=== PATIENT | female | born 1995 | race Caucasian/White ===

== ENCOUNTER 2016-07-31 09:25 | Inpatient (IN) | payer MEDICAID ==
[2016-07-31] MEDS ORDERED: Sodium Chloride 0.9% 10 ML Syringe FLUSH PRN (09:51)
[2016-07-31] MEDS ORDERED: ceFAZolin 1 GM in Premix Bag 1 BAG IV ONE (10:20)
--- NOTE | 2016-07-31 10:35 | EDM.PDOC ---
ED HPI Trauma - General Chief Complaint: Upper Extremity Injury/Pain Stated Complaint: POSS INFECTION L ARM Time Seen by Provider: 07/31/16 09:40 Source: Reports: Patient, RN notes reviewed - History of Present Illness INITIAL COMMENTS - FREE TEXT/NARRATIVE: 20-year-old female comes in with cellulitis left arm. Started about 4 or 5 days ago. States that it's a friend attempted to start an IV 4 5 days ago to "inject meth". She states she "normally does not use or inject drugs" blood looks like there is history of drug abuse in the past. she is not diabetic. This started getting red and inflamed left antecubital area within a day and has been spreading in size daily. She states the area of erythema and swelling of her left forearm and arm now is much more than yesterday. She's had no fever or chills. No chest pain or difficulty breathing. She denies cough sore throat or other unusual symptoms. She does have localized discomfort and pain with extension of the left arm. she was seen at one of the clinics yesterday, prescribed Bactrim, has taken a total of 3 doses but despite that the area of swelling and infection has been spreading. Allergies/ADRs: Allergies No Known Allergies Allergy (Verified 11/03/15 18:56) Home Medications: Ambulatory Orders Albuterol [Proventil HFA] 2 puff INH ASDIRECTED 11/03/15 [Confirmed 07/31/16] DULoxetine [Cymbalta] 60 mg PO DAILY 07/31/16 [Confirmed 07/31/16] Sulfamethoxazole/Trimethoprim [Septra DS] 1 tab PO BID 07/31/16 [Confirmed 07/31] traZODone 50 mg PO DAILY 07/31/16 [Confirmed 07/31/16] Past Medical History HEENT History: Reports: Impaired vision Other HEENT History: Wears glasses Respiratory History: Reports: Asthma Genitourinary History: Reports: Renal calculus, STD [employer] History: Reports: Musculoskeletal History: Reports: Fibromyalgia Psychiatric History: Reports: Addiction, Anxiety - Infectious Disease History Infectious Disease History: Reports: Hepatitis C Social & Family History - Family History Family Medical History: Noncontributory - Tobacco Use Smoking Status *Q: Current Every Day Smoker Years of Tobacco use: 2 Packs/Tins Daily: 0.5 - Caffeine Use Caffeine Use: Reports: None - Recreational Drug Use Recreational Drug Use: No Drug Use in Last 12 Months: No Recreational Drug Type: Reports: Heroin, Methamphetamine Recreational Drug Use Frequency: Daily Review of Systems - Review of Systems Review Of Systems: See Below Constitutional: Denies: chills, fever Eyes: Reports: no symptoms Ears: Reports: no symptoms Nose: Reports: no symptoms Mouth/Throat: Denies: pain, difficulty swallowing, painful swallowing Respiratory: Denies: shortness of breath Cardiovascular: Denies: chest pain GI/Abdominal: Denies: Abdominal pain, Nausea, Vomiting Genitourinary: Reports: no symptoms Musculoskeletal: Reports: other (pain and swelling erythema left anterior arm and forearm with extension of erythema and swelling to include proximal one third of her forearm and walk small and medial arm, no drainage). Denies: neck pain, back pain (no neck pain no neck pain) Skin: Reports: erythema (large area of erythema left anterior and medial forearm and anterior, medial and posterior warm) Neurological: Denies: headache, numbness, tingling Trauma Exam - Physical Exam Exam: See Below General Appearance: Reports: alert, no apparent distress Head: Reports: atraumatic. Denies: facial swelling Eyes: bilateral eye: EOMI, normal inspection, PERRL Ears: Reports: normal external exam Nose: Reports: normal inspection Throat/Mouth: Reports: Normal inspection, Normal oropharynx Neck: Reports: non-tender, full range of motion Respiratory Exam: Reports: no respiratory distress, lungs clear, normal breath sounds Cardiovascular: Reports: tachycardia GI/Abdominal: Reports: soft, non tender Back: Denies: CVA tenderness (R), CVA tenderness (L) Extremities: Reports: other (swelling and erythema in the cubital area of left upper extremity, this extends about one third of the distance of her forearm medially and anteriorly and extends about senior living to the axilla medially and posteriorly, there is localized tenderness of the antecubital area especially, no definite mass palpable at this time. No evidence of drainage.) Neurologic: Reports: no motor/sensory deficits, oriented x 3 Skin: Reports: Normal color, Warm/dry, Other (skin is otherwise clear) Course - Vital Signs Last Recorded V/S: Last Vital Signs Temp 99.3 F 07/31/16 09:31 Pulse 132 H 07/31/16 09:31 Resp 20 07/31/16 09:31 BP 113/80 07/31/16 09:31 Pulse Ox 99 07/31/16 09:31 - Orders/Labs/Meds Orders: Active Orders 24 hr Category Date Time Status Peripheral IV Care [RC] . DIRECTED Care 07/31/16 09:52 Active CULTURE BLOOD [BC] Stat Lab 07/31/16 10:00 Received CULTURE BLOOD [BC] Stat Lab 07/31/16 10:37 Received DRUG SCREEN, URINE [URCHEM] Stat Lab 07/31/16 11:22 Uncollected UA W/O MICROSCOPIC [URIN] Stat Lab 07/31/16 11:22 Uncollected Sodium Chloride 0.9% [Saline Flush] Med 07/31/16 09:51 Active 10 ml FLUSH ASDIRECTED PRN Peripheral IV Insertion Adult [OM.PC] Stat Oth 07/31/16 09:51 Ordered Medication Orders Sodium Chloride (Saline Flush) 10 ml FLUSH ASDIRECTED PRN PRN Reason: Keep Vein Open Last Admin: 07/31/16 10:04 Dose: 10 ml Labs: Laboratory Tests 07/31/16 07/31/16 07/31/16 Range/Units 09:55 09:55 09:55 WBC 25.93 H (3.98-10.04) K/mm3 RBC 4.18 (3.98-5.22) M/mm3 Hgb 14.0 (11.2-15.7) gm/L Hct 39.5 (34.1-44.9) % MCV 94.5 (79.4-94.8) fl MCH 33.5 H (25.6-32.2) pg MCHC 35.4 (32.2-35.5) g/dl RDW Std Deviation 40.4 (36.4-46.3) fL Plt Count 243 (182-369) K/mm3 MPV 9.6 (9.4-12.3) fl Neut % (Auto) 89.9 H (34.0-71.1) % Lymph % (Auto) 4.3 L (19.3-51.7) % [place] % (Auto) 5.2 (4.7-12.5) % Eos % (Auto) 0.3 L (0.7-5.8) Baso % (Auto) 0.1 (0.1-1.2) % Neut # 23.32 H (1.56-6.13) K/mm3 Lymph # 1.11 L (1.18-3.74) K/mm3 [place] # 1.35 H (0.24-0.36) K/mm3 Eos # 0.07 (0.04-0.36) K/mm3 Baso # 0.02 (0.01-0.08) K/mm3 Manual Slide Review Abnormal smear Sodium 136 (136-145) mEq/L Potassium 3.0 L (3.5-5.1) mEq/L Chloride 99 (98-107) mEq/L Carbon Dioxide 25 (21-32) mEq/L Anion Gap 15.0 (5-15) BUN 14 (7-18) mg/dL Creatinine 0.8 (0.55-1.02) mg/dL Est Cr Clr Drug Dosing 87.98 mL/min Estimated GFR (MDRD) > 60 (>60) mL/min BUN/Creatinine Ratio 17.5 (14-18) Glucose 110 H (74-106) mg/dL Calcium 9.0 (8.5-10.1) mg/dL Total Bilirubin 0.4 (0.2-1.0) mg/dL AST 52 H (15-37) U/L ALT 148 H (14-59) U/L Alkaline Phosphatase 108 (46-116) U/L C-Reactive Protein 20.8 H* (<1.0) mg/dL Total Protein 7.4 (6.4-8.2) g/dl Albumin 3.3 L (3.4-5.0) g/dl Globulin 4.1 gm/dL Albumin/Globulin Ratio 0.8 L (1-2) Meds: Medications Generic Name Dose Route Start Last Admin Trade Name Freq PRN Reason Stop Dose Admin Sodium Chloride 10 ml 07/31/16 09:51 07/31/16 10:04 Saline Flush FLUSH 10 ml ASDIRECTED PRN Administration Keep Vein Open Discontinued Medications Generic Name Dose Route Start Last Admin Trade Name Freq PRN Reason Stop Dose Admin Cefazolin Sodium/Dextrose 1 gm 50 mls @ 100 mls/hr 07/31/16 10:20 07/31/16 10 :43 / Premix IV 07/31/16 10:49 100 mls/hr ONETIME ONE Administration Vancomycin HCl 1 gm/ Sodium 250 mls @ 250 mls/hr 07/31/16 10:20 07/31/16 11: 31 Chloride IV 07/31/16 11:19 250 mls/hr ONETIME ONE Administration - Re-Assessments/Exams Free Text/Narrative Re-Assessment/Exam: 07/31/16 11:27 white blood count has come back elevated at almost 26,000, C- reactive protein 20. She is significant cellulitis of her left forearm and warm IV drug use associated. Also her potassium has come back low at 3.0. For all of those reasons she will need to be admitted for IV antibiotics, potassium supplementation. With a history of IV drug she is not a good candidate to try do this outpatient. . 07/31/16 12:00 Within CG screening she does qualify for inpatient as she should. With the hypokalemia I am going to admit her inpatient telemetry. Departure - Departure Time of Disposition: 11:29 Disposition: Home, Self-Care 01 Condition: serious Clinical Impression: Hypokalemia Cellulitis Qualifiers: Site of cellulitis: extremity Site of cellulitis of extremity: upper extremity Laterality: left Qualified Code(s): L03.114 - Cellulitis of left upper limb Referrals: Luisa Sanford, SALES CLERK [employer] [Primary Care Provider] - Forms: ED Department Discharge ED Communication - Discussed Case With (1) Discussed Case With (1): Admitting Provider (Dr Elliott, decision to admit an 11: 55) - My Orders Last 24 Hours: My Active Orders 07/31/16 09:51 Sodium Chloride 0.9% [Saline Flush] 10 ml FLUSH ASDIRECTED PRN Peripheral IV Insertion Adult [OM.PC] Stat 07/31/16 09:52 Peripheral IV Care [RC] . DIRECTED 07/31/16 10:00 CULTURE BLOOD [BC] Stat 07/31/16 10:37 CULTURE BLOOD [BC] Stat 07/31/16 11:22 DRUG SCREEN, URINE [URCHEM] Stat UA W/O MICROSCOPIC [URIN] Stat - Assessment/Plan Last 24 Hours: My Active Orders 07/31/16 09:51 Sodium Chloride 0.9% [Saline Flush] 10 ml FLUSH ASDIRECTED PRN Peripheral IV Insertion Adult [OM.PC] Stat 07/31/16 09:52 Peripheral IV Care [RC] . DIRECTED 07/31/16 10:00 CULTURE BLOOD [BC] Stat 07/31/16 10:37 CULTURE BLOOD [BC] Stat 07/31/16 11:22 DRUG SCREEN, URINE [URCHEM] Stat UA W/O MICROSCOPIC [URIN] Stat
--- NOTE | 2016-07-31 12:00 | PCM.HP ---
H&P History of Present Illness - General Date of Service: 07/31/16 Admit Problem/Dx: Admission Diagnosis/Problem Admission Diagnosis/Problem Cellulitis Source of Information: Patient, Old records, Provider, RN notes reviewed History Limitations: Reports: Physical impairment - History of Present Illness Initial Comments - Free Text/Narative: This is a 20 yo white female with past medical hx/o Asthma, Hx/o STD, Renal Stone, Fibromyalgia, Anxiety, Hep Infection and Tobacco Abuse who comes in with worsening left arm cellulitis. Patient was initially seen the clinic and she was given Bactrim fro antibiotic treatment. Unfortunately her arm got more swollen and painful so she presented to ED for further eval Patient carries a hx/o IVDU with Meth and Heroin. She admits to having Meth IVDU in the past 4-5days with the help of a friend. Her initial ED work up shows a CBC remarkable for WBC 25.93 with Neutrophils of 89.9%. Her chemistry is significant for K 3.0, BS 110, ASt 51, ALT 148, CRP 20.8 and Albumin 3.3. Patient was referred to me for medical treatment of her SSTI/Cellulitis. Left Arm Pain Score (Numeric/FACES): 5 - Related Data Allergies/Adverse Reactions: Allergies Allergy/AdvReac Type Severity Reaction Status Date / Time No Known Allergies Allergy Verified 11/03/15 18:56 Home Medications: Home Meds Albuterol [Proventil HFA] 2 puff INH ASDIRECTED 11/03/15 [History] DULoxetine [Cymbalta] 60 mg PO DAILY 07/31/16 [History] Sulfamethoxazole/Trimethoprim [Septra DS] 1 tab PO BID 07/31/16 [History] traZODone 50 mg PO DAILY 07/31/16 [History] Past Medical History HEENT History: Reports: Impaired vision Other HEENT History: Wears glasses Respiratory History: Reports: Asthma Genitourinary History: Reports: Renal calculus, 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: Musculoskeletal History: Reports: Fibromyalgia Psychiatric History: Reports: Addiction, Anxiety - Infectious Disease History Infectious Disease History: Reports: Hepatitis C Social & Family History - Family History Family Medical History: Noncontributory - Tobacco Use Smoking Status *Q: Current Every Day Smoker Years of Tobacco use: 2 Packs/Tins Daily: 0.5 - Caffeine Use Caffeine Use: Reports: None - Recreational Drug Use Recreational Drug Use: No Drug Use in Last 12 Months: No Recreational Drug Type: Reports: Heroin, Methamphetamine Recreational Drug Use Frequency: Daily H&P Review of Systems - Review of Systems: Review Of Systems: See Below General: Denies: fever, chills, malaise, weakness HEENT: Reports: no symptoms, sore throat. Denies: dysphasia, ear pain, eye pain , headaches, hearing changes, rhinitis, post nasal drip, sinus congestion, visual changes Pulmonary: Denies: shortness of breath Cardiovascular: Reports: no symptoms Gastrointestinal: Denies: Abdominal pain, Nausea, Vomiting Genitourinary: Reports: no symptoms Musculoskeletal: Reports: arm pain Skin: Reports: erythema, wound, change in color, lesions. Denies: cyanosis, bruising, pruritis, rash Psychiatric: Denies: depression, anxiety, hallucinations Neurological: Denies: confusion, difficulty walking, weakness, gait disturbance Hematologic/Lymphatic: Reports: no symptoms Immunologic: Reports: no symptoms Exam - Exam Exam: See Below - Vital Signs Vital Signs: Last Vital Signs Temp 37.4 C 07/31/16 09:31 Pulse 132 H 07/31/16 09:31 Resp 20 07/31/16 09:31 BP 113/80 07/31/16 09:31 Pulse Ox 99 07/31/16 09:31 Weight: 54.431 kg - Exam General: alert, oriented, cooperative. No: mild distress HEENT: Conjunctiva clear, EACs clear, EOMI, Hearing intact, Mucosa moist & pink , Nares patent, Normal nasal septum, Posterior pharynx clear, Other, PERRLA Neck: supple, trachea midline, 2+ carotid pulse wo bruit, full range of motion Lungs: Clear to auscultation, Normal respiratory effort Cardiovascular: regular rate, regular rhythm Abdomen: normal bowel sounds, soft. No: organomegaly (Female) Exam: Deferred Rectal (Female) Exam: Deferred Back Exam: normal inspection, full range of motion Extremities: normal inspection, normal pulses. No: clubbing, cyanosis, calf tenderness, edema Peripheral Pulses: 3+: posterior tibial (L), posterior tibial (R), dorsalis pedis (L), dorsalis pedis (R) Skin: warm, dry, intact Skin Alteration Location (drawings not to scale): 1 - edema and erythema. limited passie and active ROM 2 - edema and erythema. limited passie and active ROM Neuro Extensive - Mental Status: oriented x3, normal cognition, memory intact Neuro Extensive - Motor, Sensory, Reflexes: CN II-XII intact, normal gait Psychiatric: alert, normal affect, normal mood - Patient Data Lab Results last 24 hrs: Laboratory Results - last 24 hr 07/31/16 07/31/16 07/31/16 Range/Units 09:55 09:55 09:55 WBC 25.93 H (3.98-10.04) K/mm3 RBC 4.18 (3.98-5.22) M/mm3 Hgb 14.0 (11.2-15.7) gm/L Hct 39.5 (34.1-44.9) % MCV 94.5 (79.4-94.8) fl MCH 33.5 H (25.6-32.2) pg MCHC 35.4 (32.2-35.5) g/dl RDW Std Deviation 40.4 (36.4-46.3) fL Plt Count 243 (182-369) K/mm3 MPV 9.6 (9.4-12.3) fl Neut % (Auto) 89.9 H (34.0-71.1) % Lymph % (Auto) 4.3 L (19.3-51.7) % [place] % (Auto) 5.2 (4.7-12.5) % Eos % (Auto) 0.3 L (0.7-5.8) Baso % (Auto) 0.1 (0.1-1.2) % Neut # 23.32 H (1.56-6.13) K/mm3 Lymph # 1.11 L (1.18-3.74) K/mm3 [place] # 1.35 H (0.24-0.36) K/mm3 Eos # 0.07 (0.04-0.36) K/mm3 Baso # 0.02 (0.01-0.08) K/mm3 Manual Slide Review Abnormal smear Sodium 136 (136-145) mEq/L Potassium 3.0 L (3.5-5.1) mEq/L Chloride 99 (98-107) mEq/L Carbon Dioxide 25 (21-32) mEq/L Anion Gap 15.0 (5-15) BUN 14 (7-18) mg/dL Creatinine 0.8 (0.55-1.02) mg/dL Est Cr Clr Drug Dosing 87.98 mL/min Estimated GFR (MDRD) > 60 (>60) mL/min BUN/Creatinine Ratio 17.5 (14-18) Glucose 110 H (74-106) mg/dL Calcium 9.0 (8.5-10.1) mg/dL Total Bilirubin 0.4 (0.2-1.0) mg/dL AST 52 H (15-37) U/L ALT 148 H (14-59) U/L Alkaline Phosphatase 108 (46-116) U/L C-Reactive Protein 20.8 H* (<1.0) mg/dL Total Protein 7.4 (6.4-8.2) g/dl Albumin 3.3 L (3.4-5.0) g/dl Globulin 4.1 gm/dL Albumin/Globulin Ratio 0.8 L (1-2) Result Diagrams: 07/31/16 09:55 07/31/16 09:55 *Q Meaningful Use (ADM) - VTE *Q VTE Criteria *Q: - Stroke *Q Stroke Criteria *Q: - AMI *Q AMI Criteria *Q: Problem List Initiated/Reviewed/Updated: Yes Orders Last 24hrs: Active Orders 24 hr Category Date Time Status Admission Status [Patient Status] [ADT] Routine ADT 07/31/16 11:58 Active Peripheral IV Care [RC] . DIRECTED Care 07/31/16 09:52 Active CULTURE BLOOD [BC] Stat Lab 07/31/16 10:00 Received CULTURE BLOOD [BC] Stat Lab 07/31/16 10:37 Received DRUG SCREEN, URINE [URCHEM] Stat Lab 07/31/16 11:22 Uncollected UA W/O MICROSCOPIC [URIN] Stat Lab 07/31/16 11:22 Uncollected Sodium Chloride 0.9% [Saline Flush] Med 07/31/16 09:51 Active 10 ml FLUSH ASDIRECTED PRN Peripheral IV Insertion Adult [OM.PC] Stat Oth 07/31/16 09:51 Ordered Medication Orders Sodium Chloride (Saline Flush) 10 ml FLUSH ASDIRECTED PRN PRN Reason: Keep Vein Open Last Admin: 07/31/16 10:04 Dose: 10 ml Assessment/Plan Comment:: Assessment/Plan: Acute: Left Arm Cellulitis - Risk Factors: Meth and Heroin IVDU (Never snort or ingest) - IVDU Injection site - Injected arm with Meth 4-5 days ago with a friend's help - Infected arm marked with a marker - Currently on IV Vancomycin and Cefazolin, will start Rocephin 2 gram IV in am - Supportive Care, Anti-inflammatory agent, Pain Medications and Cold Compress Acute Pharyngitis - Pharynx: mildly red and edematous, no exudate noted - Rapid strep screening with culture - Cepacol lozenges 1 tab po Q4 PRN for sore throat - Anti-inflammatory Agent Leukocytosis - WBC is 25K; CRP 20.8 - 2/2 Above - Treat underlying cause Hypokalemia - 2/2 Inadequate intake - Pharmacy to replete and monitor Acute on Chronic IVDU - Carries hx/o Meth and Heroin Use - SA consult Nicotine Dependence - 1/2 ppd - Nicotine Patch daily Test Negative Chronic: Asthma/RAD Hx/o Renal Stones Hx/o STD Fibromyalgia Hep C infection w/o Treatment Anxiety Hx/o Drug Addiction Plan: Admit to Med-Surg Routine AM Labs Resume Home Will ask if she wants to be screen for HIV SA consult SW/CM for d/c planning Additional orders as above
[2016-07-31] MEDS ORDERED: Acetaminophen 325 MG Tab PO PRN (12:03)
[2016-07-31] MEDS ORDERED: HYDROmorphone 1 MG/ML Syringe IVPUSH PRN (12:03)
[2016-07-31] MEDS ORDERED: Acetaminophen/HYDROcodone 325-5 MG Tab PO PRN (12:03)
[2016-07-31] MEDS ORDERED: Bisacodyl 5 MG Tab PO PRN (12:04)
[2016-07-31] MEDS ORDERED: Ondansetron 4 MG/2 ML SDV IV PRN (12:04)
[2016-07-31] MEDS ORDERED: Polyethylene Glycol 3350 Powder 17 GM Packet PO PRN (12:04)
[2016-07-31] MEDS ORDERED: Temazepam 15 MG Cap PO PRN (12:04)
[2016-07-31] MEDS ORDERED: Promethazine 12.5 MG in Sodium Chloride 0.9% 50 ML IV PRN (12:04)
[2016-07-31] MEDS ORDERED: Albuterol/Ipratropium 3.0-0.5 MG/3 ML Neb Soln NEB PRN (12:04)
[2016-07-31] MEDS ORDERED: hydrALAZINE 20 MG/ML SDV IVPUSH PRN (12:07)
[2016-07-31] MEDS ORDERED: Metoprolol Tartrate 5 MG/5 ML SDV IVPUSH PRN (12:07)
[2016-07-31] MEDS ORDERED: LORazepam 2 MG/ML MDV IVPUSH PRN (12:07)
[2016-07-31] MEDS: Potassium Chloride 20 MEQ Tab.ER PO SCH ×2 (13:12→14:55)
[2016-07-31] MEDS ORDERED: methylPREDNISolone Sodium Succinate 125 MG/2 ML SDV IVPUSH ONE (14:34)
[2016-07-31] MEDS: Nicotine 21 MG/24 Hr Patch TRDERM SCH (14:54)
[2016-07-31] MEDS: NICOTINE Remove Patch TRDERM SCH (14:55)
[2016-07-31] MEDS: Benzocaine/Cetylpyridinium/Menthol Lozenge MUCMEM PRN (14:56)
[2016-07-31] MEDS: HYDROmorphone 1 MG/ML Syringe IVPUSH PRN (14:57)
[2016-07-31] MEDS: Naproxen 500 MG Tab PO SCH ×2 (17:45→20:31)
[2016-07-31] MEDS: Enoxaparin 40 MG/0.4 ML Syringe SUBCUT SCH (18:27)
[2016-07-31] MEDS: Sodium Chloride 0.9% 1,000 ML IV SCH (20:26)
[2016-07-31] MEDS: traZODone 50 MG Tab PO SCH (20:30)
[2016-07-31] MEDS: oxyCODONE ER 20 MG TAB.ER PO SCH (20:30)
[2016-07-31] MEDS ORDERED: Pneumococcal Polyvalent-23 Vaccine 0.5 ML SDV IM ONE (20:56)
[2016-07-31] MEDS ORDERED: Diphtheria,Pertussis(Acell),Tetanus Vaccine 0.5 ML SDV inactive IM ONE (20:56)
[2016-07-31] MEDS ORDERED: valACYclovir 1,000 MG Tab PO SCH (21:00)
--- NOTE | 2016-08-01 00:26 | PCM.PN ---
- General Info Date of Service: 08/01/16 Admission Dx/Problem (Free Text): Admission Diagnosis/Problem Admission Diagnosis/Problem Cellulitis Subjective Update: Follow Up Functional Status: Reports: pain controlled, tolerating diet, ambulating, urinating. Denies: new symptoms - Review of Systems General: Denies: fever, chills HEENT: Reports: sore throat. Denies: dysphasia Pulmonary: Denies: shortness of breath Cardiovascular: Denies: chest pain Gastrointestinal: Reports: Nausea. Denies: Abdominal pain, Vomiting Genitourinary: Reports: no symptoms Musculoskeletal: Reports: no symptoms Skin: Reports: other (cellulitis) Neurological: Denies: dizziness, difficulty walking, gait disturbance Psychiatric: Denies: depression, anxiety, agitation, hallucinations Systems Review Comment:: No over night or acute issues. Pain is controlled. Her WBC was essentially the same but CRP improve to 17. She is however stable and afebrile. - Patient Data Vitals - most recent: Last Vital Signs Temp 36.3 C 07/31/16 19:36 Pulse 100 07/31/16 19:36 Resp 18 07/31/16 19:36 BP 90/60 07/31/16 22:15 Pulse Ox 96 07/31/16 19:36 Weight - most recent: 54.431 kg I&O - last 24 hours: Intake & Output 07/31/16 07/31/16 08/01/16 14:59 22:59 07:59 Intake Total 840 Balance 840 Lab Results last 24 hrs: Laboratory Results - last 24 hr 07/31/16 07/31/16 Range/Units 16:40 16:40 Urine Color Yellow (Yellow) Urine Appearance Slt cloudy H (Clear) Urine pH 6.5 (5.0-8.0) Ur Specific [place] > or = 1.030 (1.005-1.030) Urine Protein 2+ H (Negative) Urine Glucose (UA) Negative (Negative) Urine Ketones 3+ H (Negative) Urine Occult Blood 2+ H (Negative) Urine Nitrite Negative (Negative) Urine Bilirubin 1+ H (Negative) Urine Urobilinogen 1.0 (0.2-1.0) Ur Leukocyte Esterase Negative (Negative) Urine Opiates Screen Presumptive positive H (NEGATIVE) Ur Buprenorphine Scrn Negative (NEGATIVE) Ur Oxycodone Screen Negative (NEGATIVE) Urine Methadone Screen Negative (NEGATIVE) Ur Propoxyphene Screen Negative (NEGATIVE) Ur Barbiturates Screen Negative (NEGATIVE) Ur Tricyclics Screen Negative (NEGATIVE) Ur Phencyclidine Scrn Negative (NEGATIVE) Ur Amphetamine Screen Presumptive positive H (NEGATIVE) U Methamphetamines Scrn Presumptive positive H (NEGATIVE) U Benzodiazepines Scrn Presumptive positive H (NEGATIVE) U Cocaine Metab Screen Negative (NEGATIVE) U Marijuana (THC) Screen Presumptive positive H (NEGATIVE) Henry Results last 24 hrs: Microbiology 07/31/16 15:43 Group A Streptococcus Rapid Screen - Final Throat NEGATIVE STREP A SCREEN Med Orders - Current: Current Medications Acetaminophen (Tylenol) 650 mg PO Q4H PRN PRN Reason: Pain (Mild 1-3)/fever Acetaminophen/Hydrocodone Bitart ([place] 325-5 Mg) 1 tab PO Q4H PRN PRN Reason: Pain (moderate 4-6) Albuterol/Ipratropium (Duoneb 3.0-0.5 Mg/3 Ml) 3 ml NEB Q4H PRN PRN Reason: Shortness Of Breath/wheezing Benzocaine/Menthol (Cepacol Sore Throat) 1 lozenge MUCMEM Q4HR PRN PRN Reason: Sore Throat Last Admin: 07/31/16 14:56 Dose: 1 lozenge Bisacodyl (Dulcolax) 5 mg PO DAILY PRN PRN Reason: Constipation Duloxetine HCl (Cymbalta) 60 mg PO DAILY [facility] Enoxaparin Sodium (Lovenox) 40 mg SUBCUT DAILY@1700 [facility] Last Admin: 07/31/16 18:27 Dose: 40 mg Hydralazine HCl (Apresoline) 20 mg IVPUSH Q4H PRN PRN Reason: Hypertension Hydromorphone HCl (Dilaudid) 1 mg IVPUSH Q4H PRN PRN Reason: Pain (severe 7-10) Stop: 08/04/16 23:59 Last Admin: 07/31/16 14:57 Dose: 1 mg Promethazine HCl 12.5 mg/ (Sodium Chloride) 50.5 mls @ 100 mls/hr IV Q6H PRN PRN Reason: Nausea/Vomiting Sodium Chloride (Normal Saline) 1,000 mls @ 125 mls/hr IV ASDIRECTED [facility] Last Admin: 07/31/16 20:26 Dose: 125 mls/hr Ceftriaxone Sodium 2 gm/ (Sodium Chloride) 100 mls @ 200 mls/hr IV Q24H [facility] Vancomycin HCl 1 gm/ Sodium (Chloride) 250 mls @ 250 mls/hr IV Q8H [facility] Last Admin: 07/31/16 20:25 Dose: 250 mls/hr Lorazepam (Ativan) 1 mg IV Q6H PRN PRN Reason: Anxiety Lorazepam (Ativan) 2 mg IVPUSH Q4H PRN PRN Reason: Seizures Magnesium Sulfate (Pharmacy To Dose - Magnesium Replacement) 1 dose .XX ASDIRECTED [facility] Methylprednisolone Sodium Succinate (Solu-Medrol) 125 mg IVPUSH ONETIME ONE Stop: 08/01/16 07:01 Metoprolol Tartrate (Lopressor) 5 mg IVPUSH Q4H PRN PRN Reason: Tachycardia Miscellaneous Information (Remove Patch) 1 ea TRDERM Q24H [facility] Last Admin: 07/31/16 14:55 Dose: Not Given Naproxen (Naprosyn) 500 mg PO Q12HR [facility] Last Admin: 07/31/16 20:31 Dose: 500 mg Nicotine (Habitrol) 21 mg TRDERM DAILY [facility] Last Admin: 07/31/16 14:54 Dose: 21 mg Ondansetron HCl (Zofran) 4 mg IV Q6H PRN PRN Reason: Nausea/Vomiting Oxycodone HCl (Oxycontin) 20 mg PO Q12HR [facility] Last Admin: 07/31/16 20:30 Dose: 20 mg Polyethylene Glycol (Miralax) 17 gm PO DAILY PRN PRN Reason: Constipation Potassium Chloride (Pharmacy To Dose - Potassium Replacement) 1 dose .XX ASDIRECTED [facility] Senna/Docusate Sodium (Senna Plus) 1 tab PO BID PRN PRN Reason: Constipation Sodium Chloride (Saline Flush) 10 ml FLUSH ASDIRECTED PRN PRN Reason: Keep Vein Open Last Admin: 07/31/16 10:04 Dose: 10 ml Temazepam (Restoril) 30 mg PO BEDTIME PRN PRN Reason: Sleep Trazodone HCl (Trazodone) 50 mg PO BEDTIME [facility] Last Admin: 07/31/16 20:30 Dose: 50 mg Valacyclovir HCl (Valtrex) 1,000 mg PO BID [facility] Stop: 08/01/16 21:01 Vancomycin HCl (Pharmacy To Dose - Vancomycin) 1 dose .XX ASDIRECTED [facility] Discontinued Medications Diphtheria/Tetanus/Acell Pertussis (Boostrix) 0.5 ml IM .ONCE ONE Stop: 07/31/16 20:57 Hydromorphone HCl (Dilaudid) 0.25 mg IVPUSH Q3H PRN PRN Reason: Pain (severe 7-10) Stop: 08/04/16 23:59 Cefazolin Sodium/Dextrose 1 gm (/ Premix) 50 mls @ 100 mls/hr IV ONETIME ONE Stop: 07/31/16 10:49 Last Admin: 07/31/16 10:43 Dose: 100 mls/hr Vancomycin HCl 1 gm/ Sodium (Chloride) 250 mls @ 250 mls/hr IV ONETIME ONE Stop: 07/31/16 11:19 Last Admin: 07/31/16 11:31 Dose: 250 mls/hr Methylprednisolone Sodium Succinate (Solu-Medrol) 125 mg IVPUSH ONETIME ONE Stop: 07/31/16 14:35 Last Admin: 07/31/16 14:54 Dose: 125 mg Pneumococcal Polyvalent Vaccine (Pneumovax 23) 0.5 ml IM .ONCE ONE Stop: 07/31/16 20:57 Potassium Chloride (Klor-Con M20) 20 meq PO Q3H [facility] Stop: 07/31/16 15:31 Last Admin: 07/31/16 14:55 Dose: 20 meq Valacyclovir HCl (Valtrex) 1,000 mg PO BID [facility] Stop: 08/01/16 09:01 - Exam General: alert, oriented, cooperative, no acute distress HEENT: Pupils equal, Pupils reactive, EOMI, Mucous membr. moist/pink Neck: supple, trachea midline, no JVD Lungs: Clear to auscultation, Normal respiratory effort Cardiovascular: regular rate, regular rhythm Abdomen: bowel sounds present, soft, no tenderness, no distension (Female) Exam: Deferred Back Exam: normal inspection, decreased range of motion Extremities: normal pulses, no cyanosis, no calf tenderness, edema, other ( edema on affected arm) Peripheral Pulses: 3+: posterior tibial (L), posterior tibial (R), dorsalis pedis (L), dorsalis pedis (R) Skin: warm, dry, intact Neurological: no new focal deficit Psy/Mental Status: alert, normal affect, normal mood - Problem List Review Problem List Initiated/Reviewed/Updated: Yes - My Orders Last 24 Hours: My Active Orders 07/31/16 12:03 Oxygen Therapy [RC] PRN Up With Assistance [RC] DAILY Up ad [place] [RC] DAILY VTE/DVT Education [RC] Vital Signs [RC] Q4HR Acetaminophen [Tylenol] 650 mg PO Q4H PRN Acetaminophen/HYDROcodone [[place] 325-5 MG] 1 tab PO Q4H PRN Resuscitation Status Routine 07/31/16 12:04 Albuterol/Ipratropium [DuoNeb 3.0-0.5 MG/3 ML] 3 ml NEB Q4H PRN Bisacodyl [Dulcolax] 5 mg PO DAILY PRN Docusate Sodium/Sennosides [Senna Plus] 1 tab PO BID PRN LORazepam [Ativan] 1 mg IV Q6H PRN Ondansetron [Zofran] 4 mg IV Q6H PRN Polyethylene Glycol 3350 [MiraLAX] 17 gm PO DAILY PRN Promethazine [Phenergan] 12.5 mg Sodium Chloride 0.9% [Normal Saline] 50 ml IV Q6H Temazepam [Restoril] 30 mg PO BEDTIME PRN 07/31/16 12:05 RT Aerosol Therapy [RC] ASDIRECTED Consult to Case Management [CONS] Routine Consult to Spiritual Care [CONS] Routine 07/31/16 12:06 Consult for Substance Abuse [CONS] Routine 07/31/16 12:07 LORazepam [Ativan] 2 mg IVPUSH Q4H PRN Metoprolol Tartrate [Lopressor] 5 mg IVPUSH Q4H PRN hydrALAZINE [Apresoline] 20 mg IVPUSH Q4H PRN 07/31/16 12:15 Magnesium Rep Pharmacy to Dose [Pharmacy to Dose - Magnesium Replacement] 1 dose .XX ASDIRECTED Potassium Rep Pharmacy to Dose [Pharmacy to Dose - Potassium Replacement] 1 dose .XX ASDIRECTED Sodium Chloride 0.9% [Normal Saline] 1,000 ml IV ASDIRECTED Vancomycin Pharmacy to Dose [Pharmacy to Dose - Vancomycin] 1 dose .XX ASDIRECTED 07/31/16 14:33 Benzocaine/Cetylpyrd/Menthol [Cepacol Sore Throat] 1 lozenge MUCMEM Q4HR PRN 07/31/16 14:35 Cooling Warming Measures [RC] QSHIFT 07/31/16 14:39 HYDROmorphone [Dilaudid] 1 mg IVPUSH Q4H PRN 07/31/16 14:45 Nicotine [Habitrol] 21 mg TRDERM DAILY Remove Patch 1 ea TRDERM Q24H 07/31/16 15:00 Naproxen [Naprosyn] 500 mg PO Q12HR 07/31/16 15:43 CULTURE STREP A CONFIRMATION [RM] Stat Rapid Strep w/culture conf [STREP SCRN A RAPID W CULT CONF] [RM] Stat 07/31/16 17:00 Enoxaparin [Lovenox] 40 mg SUBCUT DAILY@1700 07/31/16 18:08 HERPES SIMPLEX VIR 1,2 IGG/IGM [REF] Stat 07/31/16 20:00 Vancomycin 1 gm Sodium Chloride 0.9% [Normal Saline] 250 ml IV Q8H 07/31/16 20:56 Vaccines to be Administered [RC] PER UNIT ROUTINE 07/31/16 21:00 oxyCODONE ER [OxyCONTIN] 20 mg PO Q12HR traZODone 50 mg PO BEDTIME 07/31/16 Dinner Regular Diet [DIET] 08/01/16 05:11 BASIC METABOLIC PANEL,BMP [CHEM] AM C-REACTIVE PROTEIN [CHEM] AM CBC WITH AUTO DIFF [HEME] AM MAGNESIUM [CHEM] AM 08/01/16 07:00 methylPREDNISolone Sod Succ [Solu-MEDROL] 125 mg IVPUSH ONETIME ONE 08/01/16 09:00 DULoxetine [Cymbalta] 60 mg PO DAILY cefTRIAXone [Rocephin] 2 gm Sodium Chloride 0.9% [Normal Saline] 100 ml IV Q24H valACYclovir [Valtrex] 1,000 mg PO BID 08/02/16 05:11 BASIC METABOLIC PANEL,BMP [CHEM] AM C-REACTIVE PROTEIN [CHEM] AM CBC WITH AUTO DIFF [HEME] AM MAGNESIUM [CHEM] AM 08/03/16 05:11 BASIC METABOLIC PANEL,BMP [CHEM] AM C-REACTIVE PROTEIN [CHEM] AM CBC WITH AUTO DIFF [HEME] AM MAGNESIUM [CHEM] AM 08/04/16 05:11 BASIC METABOLIC PANEL,BMP [CHEM] AM C-REACTIVE PROTEIN [CHEM] AM CBC WITH AUTO DIFF [HEME] AM MAGNESIUM [CHEM] AM 08/05/16 05:11 BASIC METABOLIC PANEL,BMP [CHEM] AM C-REACTIVE PROTEIN [CHEM] AM CBC WITH AUTO DIFF [HEME] AM MAGNESIUM [CHEM] AM - Plan Plan:: Assessment/Plan: Acute: SSTI/Left Arm Cellulitis, Unchanged - Risk Factors: Meth and Heroin IVDU (Never snort or ingest) - IVDU Injection site - Injected arm with Meth 4-5 days ago with a friend's help - Infected arm marked with a marker - Currently on IV Vancomycin and Cefazolin, will start Rocephin 2 gram IV in am - Supportive Care, Anti-inflammatory agent, Pain Medications and Cold Compress Acute Pharyngitis, Improved - Pharynx: mildly red and edematous, no exudate noted - Rapid strep screening with culture - Cepacol lozenges 1 tab po Q4 PRN for sore throat - Anti-inflammatory Agent Leukocytosis - WBC is 25K; CRP 20.8---> 17K - 2/2 Above - Treat underlying cause Acute on Chronic IVDU - Carries hx/o Meth and Heroin Use - SA consult Nicotine Dependence - 1/2 ppd - Nicotine Patch daily Resolved: S/p Hypokalemia - 2/2 Inadequate intake - Pharmacy to replete and monitor Chronic: Asthma/RAD Hx/o Renal Stones Hx/o STD Fibromyalgia Hep C infection w/o Treatment Anxiety Hx/o Drug Addiction Plan: She is clinically stable Continue current treatment Routine AM Labs SA consult SW/CM for d/c planning Additional orders as above
[2016-08-01] MEDS: Benzocaine/Cetylpyridinium/Menthol Lozenge MUCMEM PRN (06:12)
[2016-08-01] MEDS ORDERED: methylPREDNISolone Sodium Succinate 125 MG/2 ML SDV IVPUSH ONE (07:00)
[2016-08-01] MEDS: Sodium Chloride 0.9% 1,000 ML IV SCH ×2 (08:05→16:53)
[2016-08-01] MEDS: Nicotine 21 MG/24 Hr Patch TRDERM SCH (08:45)
[2016-08-01] MEDS: DULoxetine 30 MG Cap PO SCH (08:45)
[2016-08-01] MEDS: oxyCODONE ER 20 MG TAB.ER PO SCH ×2 (08:45→21:03)
[2016-08-01] MEDS: Naproxen 500 MG Tab PO SCH ×2 (08:45→21:03)
[2016-08-01] MEDS: cefTRIAXone 2 GM in Sodium Chloride 0.9% 100 ML IV SCH (08:46)
[2016-08-01] MEDS ORDERED: valACYclovir 1,000 MG Tab PO SCH (09:00)
[2016-08-01] MEDS: valACYclovir 1,000 MG Tab PO SCH ×2 (10:12→21:02)
[2016-08-01] MEDS: NICOTINE Remove Patch TRDERM SCH (14:14)
[2016-08-01] MEDS: HYDROmorphone 1 MG/ML Syringe IVPUSH PRN ×2 (16:03→22:20)
[2016-08-01] MEDS: Enoxaparin 40 MG/0.4 ML Syringe SUBCUT SCH (16:53)
[2016-08-01] MEDS ORDERED: Temazepam 30 MG Cap PO PRN (21:00)
[2016-08-01] MEDS: traZODone 50 MG Tab PO SCH (21:07)
[2016-08-02] MEDS: Sodium Chloride 0.9% 1,000 ML IV SCH ×2 (02:18→06:50)
[2016-08-02] MEDS: HYDROmorphone 1 MG/ML Syringe IVPUSH PRN (04:30)
[2016-08-02] MEDS ORDERED: Sodium Chloride 0.9% 1,000 ML IV SCH (07:00)
--- NOTE | 2016-08-02 08:40 | PCM.PN ---
- General Info Date of Service: 08/02/16 Admission Dx/Problem (Free Text): Admission Diagnosis/Problem Admission Diagnosis/Problem Cellulitis Nanci is a 20yo female admitted for cellulitis to arm s/p methamphetamine IV injection- story has been variable from 4-14 days ago. 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 This morning she states her pain is minimal to her arm. She has been afebrile, VSS. She denies cravings, withdrawl symptoms and states "I won't withdrawl" and "I am not worried about that at all". I had a discussion with her about the narcotic pain medication use and her hx of heroin use, with Yves Ho, SA specialist and nursing in room. Yves also did participate in this discussion. Functional Status: Reports: pain controlled (states pain is minimal), tolerating diet, ambulating, urinating. Denies: new symptoms - Review of Systems General: Reports: no symptoms HEENT: Reports: no symptoms Pulmonary: Reports: no symptoms Cardiovascular: Reports: no symptoms Gastrointestinal: Reports: No symptoms Genitourinary: Reports: no symptoms Musculoskeletal: Reports: no symptoms Skin: Reports: other (erythema and swelling to left arm/AC region) Neurological: Reports: no symptoms Psychiatric: Reports: no symptoms - Patient Data Vitals - most recent: Last Vital Signs Temp 98.1 F 08/02/16 04:14 Pulse 63 08/02/16 04:14 Resp 16 08/02/16 04:14 BP 97/55 L 08/02/16 04:14 Pulse Ox 94 L 08/02/16 04:14 Weight - most recent: 127 lb 5 oz I&O - last 24 hours: Intake & Output 08/01/16 08/02/16 08/02/16 22:59 06:59 14:59 Intake Total 2790 2682 Output Total 1100 Balance 2790 1582 Lab Results last 24 hrs: Laboratory Results - last 24 hr 08/01/16 08/02/16 08/02/16 Range/Units 19:30 04:13 04:13 WBC 24.20 H (3.98-10.04) K/mm3 RBC 3.31 L (3.98-5.22) M/mm3 Hgb 10.8 L (11.2-15.7) gm/L Hct 32.9 L (34.1-44.9) % MCV 99.4 H (79.4-94.8) fl MCH 32.6 H (25.6-32.2) pg MCHC 32.8 (32.2-35.5) g/dl RDW Std Deviation 43.4 (36.4-46.3) fL Plt Count 229 (182-369) K/mm3 MPV 9.8 (9.4-12.3) fl Neut % (Auto) 86.3 H (34.0-71.1) % Lymph % (Auto) 8.2 L (19.3-51.7) % [place] % (Auto) 4.8 (4.7-12.5) % Eos % (Auto) 0 L (0.7-5.8) Baso % (Auto) 0.1 (0.1-1.2) % Neut # 20.89 H (1.56-6.13) K/mm3 Lymph # 1.99 (1.18-3.74) K/mm3 [place] # 1.15 H (0.24-0.36) K/mm3 Eos # 0.00 L (0.04-0.36) K/mm3 Baso # 0.03 (0.01-0.08) K/mm3 Manual Slide Review Abnormal smear Sodium 141 (136-145) mEq/L Potassium 4.3 (3.5-5.1) mEq/L Chloride 111 H (98-107) mEq/L Carbon Dioxide 25 (21-32) mEq/L Anion Gap 9.3 (5-15) BUN 12 (7-18) mg/dL Creatinine 0.6 (0.55-1.02) mg/dL Est Cr Clr Drug Dosing 117.31 mL/min Estimated GFR (MDRD) > 60 (>60) mL/min BUN/Creatinine Ratio 20.0 H (14-18) Glucose 132 H (74-106) mg/dL Calcium 8.2 L (8.5-10.1) mg/dL Magnesium 1.8 (1.8-2.4) mg/dl C-Reactive Protein 5.7 H* (<1.0) mg/dL Vancomycin Trough 10.9 (10.0-20.0) Henry Results last 24 hrs: Microbiology 07/31/16 15:43 Quick Strep Confirmation Culture - Preliminary Throat Group A Streptococcus Rapid Screen - Final NEGATIVE STREP A SCREEN Med Orders - Current: Current Medications Acetaminophen (Tylenol) 650 mg PO Q4H PRN PRN Reason: Pain (Mild 1-3)/fever Acetaminophen/Hydrocodone Bitart ([place] 325-5 Mg) 1 tab PO Q4H PRN PRN Reason: Pain (moderate 4-6) Last Admin: 08/01/16 04:44 Dose: 1 tab Albuterol/Ipratropium (Duoneb 3.0-0.5 Mg/3 Ml) 3 ml NEB Q4H PRN PRN Reason: Shortness Of Breath/wheezing Benzocaine/Menthol (Cepacol Sore Throat) 1 lozenge MUCMEM Q4HR PRN PRN Reason: Sore Throat Last Admin: 08/01/16 06:12 Dose: 1 lozenge Bisacodyl (Dulcolax) 5 mg PO DAILY PRN PRN Reason: Constipation Duloxetine HCl (Cymbalta) 60 mg PO DAILY [facility] Last Admin: 08/01/16 08:45 Dose: 60 mg Enoxaparin Sodium (Lovenox) 40 mg SUBCUT DAILY@1700 [facility] Last Admin: 08/01/16 16:53 Dose: 40 mg Hydralazine HCl (Apresoline) 20 mg IVPUSH Q4H PRN PRN Reason: Hypertension Hydromorphone HCl (Dilaudid) 1 mg IVPUSH Q4H PRN PRN Reason: Pain (severe 7-10) Stop: 08/04/16 23:59 Last Admin: 08/02/16 04:30 Dose: 1 mg Promethazine HCl 12.5 mg/ (Sodium Chloride) 50.5 mls @ 100 mls/hr IV Q6H PRN PRN Reason: Nausea/Vomiting Ceftriaxone Sodium 2 gm/ (Sodium Chloride) 100 mls @ 200 mls/hr IV Q24H [facility] Last Admin: 08/01/16 08:46 Dose: 200 mls/hr Vancomycin HCl 1 gm/ Sodium (Chloride) 250 mls @ 250 mls/hr IV Q8H [facility] Last Admin: 08/02/16 04:16 Dose: 250 mls/hr Sodium Chloride (Normal Saline) 1,000 mls @ 75 mls/hr IV ASDIRECTED [facility] Magnesium Sulfate 2 gm/ Premix 50 mls @ 25 mls/hr IV ONETIME ONE Stop: 08/02/16 11:59 Lorazepam (Ativan) 1 mg IV Q6H PRN PRN Reason: Anxiety Lorazepam (Ativan) 2 mg IVPUSH Q4H PRN PRN Reason: Seizures Magnesium Sulfate (Pharmacy To Dose - Magnesium Replacement) 0 dose .XX ASDIRECTED PRN PRN Reason: RX TO MONITOR MAG LEVELS Metoprolol Tartrate (Lopressor) 5 mg IVPUSH Q4H PRN PRN Reason: Tachycardia Miscellaneous Information (Remove Patch) 1 ea TRDERM Q24H [facility] Last Admin: 08/01/16 14:14 Dose: Not Given Naproxen (Naprosyn) 500 mg PO Q12HR [facility] Last Admin: 08/01/16 21:03 Dose: 500 mg Nicotine (Habitrol) 21 mg TRDERM DAILY [facility] Last Admin: 08/01/16 08:45 Dose: 21 mg Ondansetron HCl (Zofran) 4 mg IV Q6H PRN PRN Reason: Nausea/Vomiting Last Admin: 08/01/16 22:16 Dose: 4 mg Oxycodone HCl (Oxycontin) 20 mg PO Q12HR [facility] Last Admin: 08/01/16 21:03 Dose: 20 mg Polyethylene Glycol (Miralax) 17 gm PO DAILY PRN PRN Reason: Constipation Last Admin: 08/01/16 16:46 Dose: 17 gm Potassium Chloride (Pharmacy To Dose - Potassium Replacement) 0 dose .XX ASDIRECTED PRN PRN Reason: RX TO MONITOR K LEVELS Senna/Docusate Sodium (Senna Plus) 1 tab PO BID PRN PRN Reason: Constipation Last Admin: 08/01/16 04:42 Dose: 1 tab Sodium Chloride (Saline Flush) 10 ml FLUSH ASDIRECTED PRN PRN Reason: Keep Vein Open Last Admin: 07/31/16 10:04 Dose: 10 ml Temazepam (Restoril) 30 mg PO BEDTIME PRN PRN Reason: Sleep Trazodone HCl (Trazodone) 50 mg PO BEDTIME [facility] Last Admin: 08/01/16 21:07 Dose: 50 mg Vancomycin HCl (Pharmacy To Dose - Vancomycin) 0 dose .XX ASDIRECTED PRN PRN Reason: RX TO DOSE VANCOMYCIN Discontinued Medications Diphtheria/Tetanus/Acell Pertussis (Boostrix) 0.5 ml IM .ONCE ONE Stop: 07/31/16 20:57 Hydromorphone HCl (Dilaudid) 0.25 mg IVPUSH Q3H PRN PRN Reason: Pain (severe 7-10) Stop: 08/04/16 23:59 Cefazolin Sodium/Dextrose 1 gm (/ Premix) 50 mls @ 100 mls/hr IV ONETIME ONE Stop: 07/31/16 10:49 Last Admin: 07/31/16 10:43 Dose: 100 mls/hr Vancomycin HCl 1 gm/ Sodium (Chloride) 250 mls @ 250 mls/hr IV ONETIME ONE Stop: 07/31/16 11:19 Last Admin: 07/31/16 11:31 Dose: 250 mls/hr Sodium Chloride (Normal Saline) 1,000 mls @ 125 mls/hr IV ASDIRECTED [facility] Last Admin: 08/02/16 06:50 Dose: 75 mls/hr Methylprednisolone Sodium Succinate (Solu-Medrol) 125 mg IVPUSH ONETIME ONE Stop: 07/31/16 14:35 Last Admin: 07/31/16 14:54 Dose: 125 mg Methylprednisolone Sodium Succinate (Solu-Medrol) 125 mg IVPUSH ONETIME ONE Stop: 08/01/16 07:01 Last Admin: 08/01/16 06:04 Dose: 125 mg Pneumococcal Polyvalent Vaccine (Pneumovax 23) 0.5 ml IM .ONCE ONE Stop: 07/31/16 20:57 Potassium Chloride (Klor-Con M20) 20 meq PO Q3H [facility] Stop: 07/31/16 15:31 Last Admin: 07/31/16 14:55 Dose: 20 meq Temazepam (Restoril) 30 mg PO BEDTIME PRN PRN Reason: Sleep Valacyclovir HCl (Valtrex) 1,000 mg PO BID [facility] Stop: 08/01/16 09:01 Last Admin: 08/01/16 03:45 Dose: Not Given Valacyclovir HCl (Valtrex) 1,000 mg PO BID [facility] Stop: 08/01/16 21:01 Valacyclovir HCl (Valtrex) 2,000 mg PO BID [facility] Stop: 08/01/16 21:01 Last Admin: 08/01/16 21:02 Dose: 2,000 mg - Exam Quality Assessment: DVT prophylaxis General: alert, oriented, cooperative, no acute distress HEENT: Pupils equal, Pupils reactive, EOMI, Mucous membr. moist/pink Neck: supple Lungs: Clear to auscultation, Normal respiratory effort Cardiovascular: regular rate, regular rhythm Abdomen: bowel sounds present, soft, no tenderness (Female) Exam: Deferred Extremities: other (lt arm/AC with swelling and erythema to injection site) Peripheral Pulses: 1+: dorsalis pedis (L), dorsalis pedis (R) Skin: warm, dry, other (as noted above; left arm with swelling and erythema) Wound/Incisions: erythema Neurological: no new focal deficit Psy/Mental Status: alert, normal affect, normal mood - Problem List & Annotations (1) Cellulitis SNOMED Code(s): 272560183 Code(s): L03.90 - CELLULITIS, UNSPECIFIED Status: Acute Priority: High Current Visit: Yes Qualifiers: Site of cellulitis: extremity Site of cellulitis of extremity: upper extremity Laterality: left Qualified Code(s): L03.114 - Cellulitis of left upper limb (2) Methamphetamine abuse SNOMED Code(s): 155583585 Code(s): F15.10 - OTHER STIMULANT ABUSE, UNCOMPLICATED Status: Acute Priority: High Current Visit: Yes (3) Drug abuse SNOMED Code(s): 51714238 Code(s): F19.10 - OTHER PSYCHOACTIVE SUBSTANCE ABUSE, UNCOMPLICATED Status : Chronic Priority: High Current Visit: Yes (4) Heroin abuse SNOMED Code(s): 876869052 Code(s): F11.10 - OPIOID ABUSE, UNCOMPLICATED Status: Chronic Priority: Medium Current Visit: No (5) Hepatitis C SNOMED Code(s): 04219184 Code(s): B19.20 - UNSPECIFIED VIRAL HEPATITIS C WITHOUT HEPATIC COMA Status : Chronic Priority: Medium Current Visit: No Qualifiers: Viral hepatitis chronicity: chronic Hepatic coma status: without hepatic coma Qualified Code(s): B18.2 - Chronic viral hepatitis C (6) Anxiety SNOMED Code(s): 66217287 Code(s): F41.9 - ANXIETY DISORDER, UNSPECIFIED Status: Chronic Priority: High Current Visit: Yes - Problem List Review Problem List Initiated/Reviewed/Updated: Yes - My Orders Last 24 Hours: My Active Orders 08/02/16 07:00 Sodium Chloride 0.9% [Normal Saline] 1,000 ml IV ASDIRECTED - Plan Plan:: Assessment/Plan: Acute: SSTI/Left Arm Cellulitis, Unchanged - Risk Factors: Meth and Heroin IVDU (Never snort or ingest) - IVDU Injection site - Injected arm with Meth 4-14 days ago with a friend's help (story is variable) - Infected arm marked with a marker - Currently on IV Vancomycin and Rocephin; labs with minimal improvement in WBC, CRP is improved, clinically worsening of erythema and induration. Per discussion with pharmacy, will discontinue Rocephin and add zosyn for broader coverage due to her minimal response thus far. - Supportive Care, Anti-inflammatory agent, and Cold Compress Acute Pharyngitis, Improved - Pharynx: mildly red and edematous, no exudate noted - Rapid strep screening with culture - Cepacol lozenges 1 tab po Q4 PRN for sore throat - Anti-inflammatory Agent Leukocytosis - WBC is 25K; CRP 20.8---> 17K - 2/2 Above - Treat underlying cause Acute on Chronic IVDU - Carries hx/o Meth and Heroin Use--recently out of rehab for heroin addiction - SA consult - Negative HIV screen - Will discontinue all narcotic medications with hx of heroin abuse, pain to arm is minimal; will use naproxen and tylenol PRN for now. This is also with recommendations of Yves TEJADA. Nicotine Dependence - 1/2 ppd - Nicotine Patch daily Resolved: S/p Hypokalemia - 2/2 Inadequate intake - Pharmacy to replete and monitor Chronic: Asthma/RAD Hx/o Renal Stones Hx/o STD Fibromyalgia Hep C infection w/o Treatment Anxiety Hx/o Drug Addiction Plan: She is clinically stable Continue current treatment Routine AM Labs SA consult-- consider commitment but will see how she does with discontinuation of narcotic pain medications; if withdrawls then we know this was not just a one time relapse. SW/CM for d/c planning Additional orders as above
[2016-08-02] MEDS: DULoxetine 30 MG Cap PO SCH (09:32)
[2016-08-02] MEDS: cefTRIAXone 2 GM in Sodium Chloride 0.9% 100 ML IV SCH (09:33)
[2016-08-02] MEDS: oxyCODONE ER 20 MG TAB.ER PO SCH (09:33)
[2016-08-02] MEDS: Nicotine 21 MG/24 Hr Patch TRDERM SCH (09:33)
[2016-08-02] MEDS: Naproxen 500 MG Tab PO SCH ×2 (09:33→21:00)
[2016-08-02] MEDS ORDERED: Sodium Chloride 0.9% 10 ML Syringe FLUSH PRN (09:34)
[2016-08-02] MEDS: Magnesium Hydroxide 400 MG/5 ML Susp 30 ML Cup PO PRN (09:50)
[2016-08-02] MEDS ORDERED: Magnesium Sulfate/Water 2 GM in Premix Bag 1 BAG IV ONE (10:00)
[2016-08-02] MEDS ORDERED: Piperacillin/Tazobactam 4.5 GM in Sodium Chloride 0.9% 100 ML IV ONE (11:00)
[2016-08-02] MEDS ORDERED: Alum Hydrox/Mag Hydrox/Simeth 30 ML, Lidocaine 2% 15 ML PO ONE ×2 (12:07)
[2016-08-02] MEDS: NICOTINE Remove Patch TRDERM SCH (14:55)
[2016-08-02] MEDS: Enoxaparin 40 MG/0.4 ML Syringe SUBCUT SCH (17:40)
[2016-08-02] MEDS: LORazepam 2 MG/ML MDV IV PRN (17:41)
[2016-08-02] MEDS: Piperacillin/Tazobactam 4.5 GM in Sodium Chloride 0.9% 100 ML IV SCH (18:56)
[2016-08-02] MEDS: traZODone 50 MG Tab PO SCH (21:04)
[2016-08-03] MEDS: LORazepam 2 MG/ML MDV IV PRN (00:19)
--- NOTE | 2016-08-03 00:49 | CONS ---
CONSULTING PHYSICIAN: Yves Ho LAC DATE OF CONSULTATION: 08/02/2016 TIME: 11:23 p.m. The patient is a 20-year-old female, admitted to [facility] on 07/31/2016 with cellulitis in her left arm secondary to IV drug use. An alcohol and drug evaluation was requested by the medical treatment team. HISTORY OF PRESENT ILLNESS: The patient is minimally cooperative for this evaluation and has refused a FE to speak to any family members. The patient reports she was born and raised in [place] primarily by her mother and stepfather. Her biological father from her mother when the patient was 1 or 2 years old. The patient continued to have an occasional relationship with her father and reports that he 2 years ago from a drug overdose. She states her father used various drugs throughout his life and was not able to recover from his addictions. The patient reports she graduated from high school in 2013 and she maintained average grades and was involved in extracurricular choir and track. She reports her mother is Yazidi, however, she considers herself to be a Synagogue. 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 She is currently unemployed and living with her friend Kashif. She reports that she plans on moving back to [place] on August 10 to get away from the negative influences of people in [place]. SUBSTANCE ABUSE HISTORY: Nicotine. The patient reports that she began smoking cigarettes at age 17 and currently smokes a half pack of cigarettes daily. Alcohol. The patient reports she began drinking at age 15 going to parties on the weekend. She would typically drink 2 shots of whatever was available. She states she does not drink and does not like alcohol as she prefers smoking weed. Cannabis. The patient reports she began smoking cannabis at age 13 and started off smoking 1 to 2 days a week. By age 17, her smoking escalated to all day every day use. This pattern has continued to the present. The patient reports smoking from an 8th to a quarter ounce a week. Opiates. The patient reports she began using opiates recreationally when she was 16. She began by using her aunt's Percocet and would crush and snort 1 to 2 pills per occasion. Her use of opiates escalated over time and at age 17, she began IV heroin use. She states that the amount of shots that she took every day depended on the quality of the heroin. Since she has been to [place], she reports she has been using 2 shots daily and she does not know how much she is using because she states someone else loads the shots for her. Her last use was prior to admission. She reports that after coming to [place], she was introduced to black tar and so she does not need as much on a daily basis. In May 2016, she overdosed on heroin and went to treatment at [facility] in [place]. After her release, she did not follow through with aftercare, rather she went back to using. The patient reports her former boyfriend, her father, and another friend, have all from drug overdose in the past 2 years. The patient is aware that even with this knowledge, she continues to use. A prescription drug monitoring report was pulled and it indicates that the patient has been prescribed lorazepam inconsistently on occasion in 2015. The patient was able to obtain 70 hydrocodone in [place] in May 2015. I am unable to locate any court records from [place] and [place] on the patient and she has minimal criminal history record in [place]. Methamphetamine. The patient's self report is minimal and she was really unamenable to speak about her methamphetamine use. What she did report was contradictory. She is stating she has only done meth a handful of times, however, generally speaking, when using an unfamiliar drug, a person does not start with IV use. She denied speed balling when we first started to talk about methamphetamine, however, towards the end of our conversation, she was acknowledging that she had speed balled in the past. The patient is presenting currently with methamphetamine hallmark withdrawal symptoms, fatigue, and craving for sweets. Very little information was offered by the patient about her methamphetamine use. What we do know is that she admitted to speed balling and is using IV, the nature of methamphetamine. Is a person who does not use it occasionally or a handful of times, it is typically consistent use. DIAGNOSES: The patient meets DSM-5 criteria for the following diagnoses: 1. F12.20, cannabis use disorder, severe. 2. F11.20, opiate use disorder, severe. 3. F15.20, stimulant use disorder, severe, methamphetamine type. 4. F17.200, tobacco use disorder, severe. ASAM DIMENSIONS: Dimension 1: Score 2. The patient has some difficulty tolerating and coping with withdrawal discomfort. Intoxication may be severe but responds to support and treatment. Dimension 2: Score 1. The patient tolerates and ronald with physical discomfort and is able to get the services she needs. She is presenting with hep C, and cellulitis of the left arm. Dimension 3: Score 2. The patient appears to have some difficulty with impulse control and lacks coping skills. Appears to have difficulty functioning in significant life areas and may have a mental health diagnosis, however, she is able to participate in most treatment activities. Dimension 4: Score 3. The patient displays inconsistent compliance, minimal awareness of her addiction and is minimally cooperative. Dimension 5: Score 3. The patient has little recognition and understanding of relapse and recidivism issues and displays a high vulnerability for further substance use. Dimension 6: Score 3. The patient is not engaged in structured meaningful activity, and the client's support system appears to be minimal. Her peers are engaged in substance use as well. ASSESSMENT SUMMARY: The patient appears to be a nice young woman who has battled a biologically driven drug addiction and agrees that she is not done using. Three people close to her. Her boyfriend, a friend, and her father have OD'd from IV drug use in the past 2 years. She OD'd in May 2016, yet continues to use, demonstrating a serious addiction. The patient reported that she is not experiencing withdrawals, not in pain, and that she has quit using as this was just a relapse. I spoke with Dr. Elliott and REESE Lawler, about the patient's self report to understand the severity of the patient's opiate dependence and possibly place the patient in a treatment center. It was incumbent that her narcotics would have to be discontinued, which would determine the severity of withdrawals and the severity of the dependence. I spoke with the patient about the decision to discontinue her narcotic medications, as there is concern if the patient is discharged, she will go back to IV use, which would exacerbate her present medical condition. The patient is agreeing that the discontinuation of pain medications would be tolerated and she would be fine for discharge and have no withdrawal symptoms. The patient was advised that if she experienced a moderate to severe withdrawals or begin drug-seeking behavior in response to the discontinuation, that would indicate that she would not be able to stay sober on her own if discharged and a petition for involuntary commitment may be considered. The patient is adamant that she does not need intervention or treatment and that she is planning on moving back to [place] on August 10 to start a new life. The patient was able to produce a confirmation bus ticket substantiating her plans. Further monitoring of the patient's medical condition and cravings were discussed with THIERNO Gonzales; charge nurse Henny Olivier RN; and Dr. Elliott. I will check on the patient's status tomorrow, August 03 to finalize a safe discharge plan depending on the patient's condition. RECOMMENDATION: The patient's medical condition will be monitored overnight. If the patient is not experiencing [id number] withdrawals or demonstrating drug-seeking behavior, an outpatient program may be appropriate and she will be referred to an appropriate facility; however, should the patient experience moderate-to- severe withdrawals, and demonstrate drug-seeking behavior, a petition for involuntary commitment will be considered at that time. NELSON /[id number]
[2016-08-03] MEDS: Piperacillin/Tazobactam 4.5 GM in Sodium Chloride 0.9% 100 ML IV SCH ×4 (02:25→19:24)
[2016-08-03] MEDS: Nicotine 21 MG/24 Hr Patch TRDERM SCH (09:14)
[2016-08-03] MEDS: DULoxetine 30 MG Cap PO SCH (09:14)
[2016-08-03] MEDS: Naproxen 500 MG Tab PO SCH ×2 (09:15→21:40)
[2016-08-03] MEDS: LORazepam 0.5 MG Tab PO PRN ×2 (09:15→17:31)
[2016-08-03] MEDS: Magnesium Hydroxide 400 MG/5 ML Susp 30 ML Cup PO PRN (09:34)
[2016-08-03] MEDS ORDERED: Vancomycin 1 GM SDV ONE (10:47)
--- NOTE | 2016-08-03 13:42 | PCM.PN ---
- General Info Date of Service: 08/03/16 Admission Dx/Problem (Free Text): Admission Diagnosis/Problem Admission Diagnosis/Problem Cellulitis Nanci is a 20yo female admitted for cellulitis to lt arm s/p methamphetamine IV injection- story has been variable from 4-14 days ago. 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 This morning she will arouse minimally for me. She opens her eyes and says "Hi" . She will roll over to let me examine her, is cooperative in her actions but otherwise will not speak to me or answer any of my questions. Nursing reports she was demanding ativan frequently through the night. She has been afebrile. Other VSS. Labs are with improved response this morning. Functional Status: Reports: pain controlled, tolerating diet, ambulating, urinating. Denies: new symptoms - Review of Systems General: Reports: No Symptoms Pulmonary: Reports: no symptoms Gastrointestinal: Reports: No symptoms Skin: Reports: other (erythema to lt arm) Systems Review Comment:: Difficult to obtain this morning as patient will not speak to me this morning during my exam. - Patient Data Vitals - most recent: Last Vital Signs Temp 99.1 F 08/03/16 12:16 Pulse 94 08/03/16 12:16 Resp 18 08/03/16 12:16 BP 96/61 08/03/16 12:16 Pulse Ox 99 08/03/16 12:16 Weight - most recent: 128 lb 4.8 oz I&O - last 24 hours: Intake & Output 08/02/16 08/03/16 08/03/16 22:59 06:59 14:59 Intake Total 1830 1100 240 Output Total 600 2300 Balance 1230 -1200 240 Lab Results last 24 hrs: Laboratory Results - last 24 hr 08/03/16 08/03/16 Range/Units 04:23 04:23 WBC 11.86 H (3.98-10.04) K/mm3 RBC 3.87 L (3.98-5.22) M/mm3 Hgb 12.7 (11.2-15.7) gm/L Hct 38.1 (34.1-44.9) % MCV 98.4 H (79.4-94.8) fl MCH 32.8 H (25.6-32.2) pg MCHC 33.3 (32.2-35.5) g/dl RDW Std Deviation 43.1 (36.4-46.3) fL Plt Count 278 (182-369) K/mm3 MPV 9.7 (9.4-12.3) fl Neut % (Auto) 59.8 (34.0-71.1) % Lymph % (Auto) 25.7 (19.3-51.7) % Stan[place] % (Auto) 8.3 (4.7-12.5) % Eos % (Auto) 0.4 L (0.7-5.8) Baso % (Auto) 0.4 (0.1-1.2) % Neut # 7.09 H (1.56-6.13) K/mm3 Lymph # 3.05 (1.18-3.74) K/mm3 [place] # 0.98 H (0.24-0.36) K/mm3 Eos # 0.05 (0.04-0.36) K/mm3 Baso # 0.05 (0.01-0.08) K/mm3 Manual Slide Review Abnormal smear Sodium 139 (136-145) mEq/L Potassium 4.1 (3.5-5.1) mEq/L Chloride 106 (98-107) mEq/L Carbon Dioxide 25 (21-32) mEq/L Anion Gap 12.1 (5-15) BUN 11 (7-18) mg/dL Creatinine 0.6 (0.55-1.02) mg/dL Est Cr Clr Drug Dosing 117.31 mL/min Estimated GFR (MDRD) > 60 (>60) mL/min BUN/Creatinine Ratio 18.3 H (14-18) Glucose 84 (74-106) mg/dL Calcium 8.0 L (8.5-10.1) mg/dL Magnesium 2.0 (1.8-2.4) mg/dl C-Reactive Protein 3.1 H* (<1.0) mg/dL Henry Results last 24 hrs: Microbiology 07/31/16 15:43 Quick Strep Confirmation Culture - Final Throat Beta Streptococcus Group A Group A Streptococcus Rapid Screen - Final NEGATIVE STREP A SCREEN Med Orders - Current: Current Medications Acetaminophen (Tylenol) 650 mg PO Q4H PRN PRN Reason: Pain (Mild 1-3)/fever Last Admin: 08/02/16 16:48 Dose: 650 mg Albuterol/Ipratropium (Duoneb 3.0-0.5 Mg/3 Ml) 3 ml NEB Q4H PRN PRN Reason: Shortness Of Breath/wheezing Benzocaine/Menthol (Cepacol Sore Throat) 1 lozenge MUCMEM Q4HR PRN PRN Reason: Sore Throat Last Admin: 08/01/16 06:12 Dose: 1 lozenge Bisacodyl (Dulcolax) 5 mg PO DAILY PRN PRN Reason: Constipation Duloxetine HCl (Cymbalta) 60 mg PO DAILY [facility] Last Admin: 08/03/16 09:14 Dose: 60 mg Enoxaparin Sodium (Lovenox) 40 mg SUBCUT DAILY@1700 [facility] Last Admin: 08/02/16 17:40 Dose: 40 mg Hydralazine HCl (Apresoline) 20 mg IVPUSH Q4H PRN PRN Reason: Hypertension Promethazine HCl 12.5 mg/ (Sodium Chloride) 50.5 mls @ 100 mls/hr IV Q6H PRN PRN Reason: Nausea/Vomiting Piperacillin Sod/Tazobactam (Sod 4.5 gm/ Sodium Chloride) 100 mls @ 25 mls/hr IV Q8H [facility] Last Admin: 08/03/16 11:05 Dose: 25 mls/hr Vancomycin HCl 1 gm/ Sodium (Chloride) 250 mls @ 250 mls/hr IV Q8H ELSY Lorazepam (Ativan) 0.5 mg PO Q8H PRN PRN Reason: Anxiety Last Admin: 08/03/16 09:15 Dose: 0.5 mg Magnesium Hydroxide (Milk Of Magnesia) 30 ml PO Q6H PRN PRN Reason: Constipation Last Admin: 08/03/16 09:34 Dose: 30 ml Magnesium Sulfate (Pharmacy To Dose - Magnesium Replacement) 0 dose .XX ASDIRECTED PRN PRN Reason: RX TO MONITOR MAG LEVELS Metoprolol Tartrate (Lopressor) 5 mg IVPUSH Q4H PRN PRN Reason: Tachycardia Miscellaneous Information (Remove Patch) 1 ea TRDERM Q24H [facility] Last Admin: 08/02/16 14:55 Dose: Not Given Naproxen (Naprosyn) 500 mg PO Q12HR [facility] Last Admin: 08/03/16 09:15 Dose: 500 mg Nicotine (Habitrol) 21 mg TRDERM DAILY [facility] Last Admin: 08/03/16 09:14 Dose: 21 mg Ondansetron HCl (Zofran) 4 mg IV Q6H PRN PRN Reason: Nausea/Vomiting Last Admin: 08/01/16 22:16 Dose: 4 mg Polyethylene Glycol (Miralax) 17 gm PO DAILY PRN PRN Reason: Constipation Last Admin: 08/01/16 16:46 Dose: 17 gm Potassium Chloride (Pharmacy To Dose - Potassium Replacement) 0 dose .XX ASDIRECTED PRN PRN Reason: RX TO MONITOR K LEVELS Senna/Docusate Sodium (Senna Plus) 1 tab PO BID PRN PRN Reason: Constipation Last Admin: 08/01/16 04:42 Dose: 1 tab Sodium Chloride (Saline Flush) 10 ml FLUSH ASDIRECTED PRN PRN Reason: Keep Vein Open Last Admin: 07/31/16 10:04 Dose: 10 ml Temazepam (Restoril) 30 mg PO BEDTIME PRN PRN Reason: Sleep Trazodone HCl (Trazodone) 50 mg PO BEDTIME [facility] Last Admin: 08/02/16 21:04 Dose: 50 mg Vancomycin HCl (Pharmacy To Dose - Vancomycin) 0 dose .XX ASDIRECTED PRN PRN Reason: RX TO DOSE VANCOMYCIN Discontinued Medications Acetaminophen/Hydrocodone Bitart ([place] 325-5 Mg) 1 tab PO Q4H PRN PRN Reason: Pain (moderate 4-6) Last Admin: 08/01/16 04:44 Dose: 1 tab Al Hydroxide/Mg Hydroxide 30 (ml/ Lidocaine HCl 15 ml) 0 ml PO ONETIME ONE Stop: 08/02/16 12:08 Last Admin: 08/02/16 12:24 Dose: 45 ml Diphtheria/Tetanus/Acell Pertussis (Boostrix) 0.5 ml IM .ONCE ONE Stop: 07/31/16 20:57 Hydromorphone HCl (Dilaudid) 0.25 mg IVPUSH Q3H PRN PRN Reason: Pain (severe 7-10) Stop: 08/04/16 23:59 Hydromorphone HCl (Dilaudid) 1 mg IVPUSH Q4H PRN PRN Reason: Pain (severe 7-10) Stop: 08/04/16 23:59 Last Admin: 08/02/16 04:30 Dose: 1 mg Cefazolin Sodium/Dextrose 1 gm (/ Premix) 50 mls @ 100 mls/hr IV ONETIME ONE Stop: 07/31/16 10:49 Last Admin: 07/31/16 10:43 Dose: 100 mls/hr Vancomycin HCl 1 gm/ Sodium (Chloride) 250 mls @ 250 mls/hr IV ONETIME ONE Stop: 07/31/16 11:19 Last Admin: 07/31/16 11:31 Dose: 250 mls/hr Sodium Chloride (Normal Saline) 1,000 mls @ 125 mls/hr IV ASDIRECTED [facility] Last Admin: 08/02/16 06:50 Dose: 75 mls/hr Ceftriaxone Sodium 2 gm/ (Sodium Chloride) 100 mls @ 200 mls/hr IV Q24H [facility] Last Admin: 08/02/16 09:33 Dose: 200 mls/hr Vancomycin HCl 1 gm/ Sodium (Chloride) 250 mls @ 250 mls/hr IV Q8H [facility] Last Admin: 08/03/16 13:23 Dose: Not Given Sodium Chloride (Normal Saline) 1,000 mls @ 75 mls/hr IV ASDIRECTED [facility] Magnesium Sulfate 2 gm/ Premix 50 mls @ 25 mls/hr IV ONETIME ONE Stop: 08/02/16 11:59 Last Admin: 08/02/16 12:11 Dose: 25 mls/hr Piperacillin Sod/Tazobactam (Sod 4.5 gm/ Sodium Chloride) 100 mls @ 200 mls/hr IV ONETIME ONE Stop: 08/02/16 11:29 Last Admin: 08/02/16 12:22 Dose: 200 mls/hr Lorazepam (Ativan) 1 mg IV Q6H PRN PRN Reason: Anxiety Last Admin: 08/03/16 00:19 Dose: 1 mg Lorazepam (Ativan) 2 mg IVPUSH Q4H PRN PRN Reason: Seizures Methylprednisolone Sodium Succinate (Solu-Medrol) 125 mg IVPUSH ONETIME ONE Stop: 07/31/16 14:35 Last Admin: 07/31/16 14:54 Dose: 125 mg Methylprednisolone Sodium Succinate (Solu-Medrol) 125 mg IVPUSH ONETIME ONE Stop: 08/01/16 07:01 Last Admin: 08/01/16 06:04 Dose: 125 mg Oxycodone HCl (Oxycontin) 20 mg PO Q12HR ELSY Last Admin: 08/02/16 09:33 Dose: Not Given Pneumococcal Polyvalent Vaccine (Pneumovax 23) 0.5 ml IM .ONCE ONE Stop: 07/31/16 20:57 Potassium Chloride (Klor-Con M20) 20 meq PO Q3H ELSY Stop: 07/31/16 15:31 Last Admin: 07/31/16 14:55 Dose: 20 meq Sodium Chloride (Saline Flush) 10 ml FLUSH ASDIRECTED PRN PRN Reason: Keep Vein Open Stop: 08/02/16 18:00 Temazepam (Restoril) 30 mg PO BEDTIME PRN PRN Reason: Sleep Valacyclovir HCl (Valtrex) 1,000 mg PO BID ELSY Stop: 08/01/16 09:01 Last Admin: 08/01/16 03:45 Dose: Not Given Valacyclovir HCl (Valtrex) 1,000 mg PO BID ELSY Stop: 08/01/16 21:01 Valacyclovir HCl (Valtrex) 2,000 mg PO BID ELSY Stop: 08/01/16 21:01 Last Admin: 08/01/16 21:02 Dose: 2,000 mg Vancomycin HCl (Vancomycin) Confirm Administered Dose 1 gm .ROUTE .STK-MED ONE Stop: 08/03/16 10:48 Last Admin: 08/03/16 11:04 Dose: Not Given - Exam Quality Assessment: DVT prophylaxis General: alert, oriented, no acute distress HEENT: Pupils equal, Mucous membr. moist/pink Neck: supple Lungs: Clear to auscultation, Normal respiratory effort Cardiovascular: Regular Rate, Regular Rhythm Abdomen: bowel sounds present, soft, no tenderness (Female) Exam: Deferred Peripheral Pulses: 2+: radial (L), radial (R) Skin: warm, dry, other (left arm is with at least 50% improvement from yesterdays exam; erythema much improved, induration is significantly improved as well. Warmth is minimal today. ) Psy/Mental Status: alert, other (patient closes her eyes and has minimal verbal communication with me this morning. ). No: anxious - Problem List & Annotations (1) Cellulitis SNOMED Code(s): 938304226 Code(s): L03.90 - CELLULITIS, UNSPECIFIED Status: Acute Priority: High Current Visit: Yes Qualifiers: Site of cellulitis: extremity Site of cellulitis of extremity: upper extremity Laterality: left Qualified Code(s): L03.114 - Cellulitis of left upper limb (2) Methamphetamine abuse SNOMED Code(s): 539796033 Code(s): F15.10 - OTHER STIMULANT ABUSE, UNCOMPLICATED Status: Acute Priority: High Current Visit: Yes (3) Drug abuse SNOMED Code(s): 54753542 Code(s): F19.10 - OTHER PSYCHOACTIVE SUBSTANCE ABUSE, UNCOMPLICATED Status : Chronic Priority: High Current Visit: Yes (4) Heroin abuse SNOMED Code(s): 229953385 Code(s): F11.10 - OPIOID ABUSE, UNCOMPLICATED Status: Chronic Priority: Medium Current Visit: No (5) Hepatitis C SNOMED Code(s): 71878308 Code(s): B19.20 - UNSPECIFIED VIRAL HEPATITIS C WITHOUT HEPATIC COMA Status : Chronic Priority: Medium Current Visit: No Qualifiers: Viral hepatitis chronicity: chronic Hepatic coma status: without hepatic coma Qualified Code(s): B18.2 - Chronic viral hepatitis C (6) Anxiety SNOMED Code(s): 44018599 Code(s): F41.9 - ANXIETY DISORDER, UNSPECIFIED Status: Chronic Priority: High Current Visit: Yes - Problem List Review Problem List Initiated/Reviewed/Updated: Yes - My Orders Last 24 Hours: My Active Orders 08/02/16 19:00 Piperacillin/Tazobactam [Zosyn] 4.5 gm Sodium Chloride 0.9% [Normal Saline] 100 ml IV Q8H 08/03/16 07:01 LORazepam [Ativan] 0.5 mg PO Q8H PRN - Plan Plan:: Assessment/Plan: Acute: SSTI/Left Arm Cellulitis, Unchanged - Risk Factors: Meth and Heroin IVDU (Never snort or ingest) - IVDU Injection site - Injected arm with Meth 4-14 days ago with a friend's help (story is variable) - Infected arm marked with a marker - Currently on IV Vancomycin and Zosyn; labs with improvements today WBC from 25-->11 today; CRP improved today also. Cont with current therapy and cont to follow am labs. - Supportive Care, Anti-inflammatory agent, and Cold Compress Acute Pharyngitis, Improved - Pharynx: mildly red and edematous, no exudate noted - Rapid strep screening with culture; rapid was negative, culture + for group A strep - Cepacol lozenges 1 tab po Q4 PRN for sore throat - Anti-inflammatory Agent Leukocytosis - WBC is 25K- improved to 11K today as above - 2/2 Above - Treat underlying cause Acute on Chronic IVDU - Carries hx/o Meth and Heroin Use--recently out of rehab for heroin addiction - SA consult - Negative HIV screen - Will discontinue all narcotic medications with hx of heroin abuse, pain to arm is minimal; will use naproxen and tylenol PRN for now. This is also with recommendations of Yves TEJADA. -Patient continues with minimal pain to arm thus far today. She has been asking for ativan frequently overnight, will decrease dosing and frequency to PO and every 8 hours due to addiction potential and addiction hx. She is sleepy now and with no obvious anxiety at time of my exam. Nicotine Dependence - 1/2 ppd - Nicotine Patch daily Resolved: S/p Hypokalemia - 2/2 Inadequate intake - Pharmacy to replete and monitor Chronic: Asthma/RAD Hx/o Renal Stones Hx/o STD Fibromyalgia Hep C infection w/o Treatment Anxiety Hx/o Drug Addiction Plan: She is clinically stable Continue current treatment Routine AM Labs SA consult-- consider commitment but will see how she does with discontinuation of narcotic pain medications; if withdrawls then we know this was not just a one time relapse. SW/CM for d/c planning Additional orders as above
[2016-08-03] MEDS: NICOTINE Remove Patch TRDERM SCH (13:55)
--- NOTE | 2016-08-03 17:09 | CONS ---
CONSULTING PHYSICIAN: Yves Ho LAC DATE OF CONSULTATION: 08/03/2016 TIME: 1645 hours. I met with the patient today 08/03/2016 for followup assessment. I also spoke with patient's attending physician, nurse, and social work regarding the patient's demonstrated behavior, medical condition, and withdrawal symptoms. The patient reports she is doing well and not experiencing withdrawals. She also acknowledged that the weaning of pain medications and Ativan was acceptable to her. Attending caregivers are reporting the patient appears to be tolerating the cessation of pain medications and a decrease in Ativan dosage. Based on the results of this further assessment, it appears the patient could be discharged to the least restrictive level of treatment as outpatient services. At this time, the patient is not meeting eminent danger criteria that would require a commitment. THIERNO Soto, has provided the patient with substance abuse treatment resource, referral, and information on areas support groups. The patient and I discussed outpatient treatment options within the community as well. The patient was also informed that she continue to use drugs and present to the [facility] with any life-threatening drug related medical issues that a petition for involuntary commitment would be considered at that time, for her safety. NELSON /[id number]
[2016-08-03] MEDS: Enoxaparin 40 MG/0.4 ML Syringe SUBCUT SCH (17:31)
[2016-08-03] MEDS: traZODone 50 MG Tab PO SCH (21:40)
[2016-08-04] MEDS: Piperacillin/Tazobactam 4.5 GM in Sodium Chloride 0.9% 100 ML IV SCH ×2 (02:32→10:46)
[2016-08-04] MEDS: LORazepam 0.5 MG Tab PO PRN ×2 (02:38→10:46)
[2016-08-04] MEDS: DULoxetine 30 MG Cap PO SCH (09:03)
[2016-08-04] MEDS: Naproxen 500 MG Tab PO SCH (09:04)
[2016-08-04] MEDS: Nicotine 21 MG/24 Hr Patch TRDERM SCH (09:04)
[2016-08-04] MEDS ORDERED: Pneumococcal Polyvalent-23 Vaccine 0.5 ML SDV IM ONE (09:17)
--- NOTE | 2016-08-04 09:38 | PCM.DCSUM1 ---
Discharge Summary - Hospital Course Free Text/Narrative:: This is a 20 yo white female with past medical hx/o heroin addiction- out of rehab in June, other illicit drug use/abuse, Asthma, Hx/o STD, Renal Stone, Fibromyalgia, Anxiety, chronic Hep C Infection (untreated) and Tobacco Abuse who comes in with worsening left arm cellulitis. Patient was initially seen the clinic and she was given Bactrim for antibiotic treatment. Unfortunately her arm got more swollen and painful so she presented to ED for further eval Patient carries a hx/o IVDU with Meth and Heroin. She admits to having Meth IVDU in the past 4-14 days (story is variable) with the help of a friend. Her initial ED work up shows a CBC remarkable for WBC 25.93 with Neutrophils of 89.9 %. Her chemistry is significant for K 3.0, BS 110, ASt 51, ALT 148, CRP 20.8 and Albumin 3.3. Patient was referred to me for medical treatment of her SSTI/Cellulitis. She was admitted, started on IV vancomycin and rocephin for cellulitis s/p meth injection to left arm. She had minimal response initially so rocephin was dc'd and zosyn added. She had good response with WBC down to 9,000 on day of discharge. Erythema and induration significantly improved, at least 75%. Yves Ho LAC was consulted. Narcotic pain medications were stopped, patient continued to do well. She is anxious for discharge home today. She will be discharged on clindamycin 300mg TID x 10 days, warm packs to arm PRN, naproxen or motrin for discomfort. Fup with her PCP, EMILIE Savage within 2 days of discharge for recheck. - Discharge Data Discharge Date: 08/04/16 (admit date 07/31/16) Discharge Disposition: Home, Self-Care 01 Condition: Good - Discharge Diagnosis/Problem(s) (1) Cellulitis SNOMED Code(s): 823385773 ICD Code: L03.90 - CELLULITIS, UNSPECIFIED Status: Acute Priority: High Current Visit: Yes Qualifiers: Site of cellulitis: extremity Site of cellulitis of extremity: upper extremity Laterality: left Qualified Code(s): L03.114 - Cellulitis of left upper limb (2) Methamphetamine abuse SNOMED Code(s): 652950756 ICD Code: F15.10 - OTHER STIMULANT ABUSE, UNCOMPLICATED Status: Acute Priority: High Current Visit: Yes (3) Drug abuse SNOMED Code(s): 38463378 ICD Code: F19.10 - OTHER PSYCHOACTIVE SUBSTANCE ABUSE, UNCOMPLICATED Status : Chronic Priority: High Current Visit: Yes (4) Heroin abuse SNOMED Code(s): 813898032 ICD Code: F11.10 - OPIOID ABUSE, UNCOMPLICATED Status: Chronic Priority: Medium Current Visit: No (5) Hepatitis C SNOMED Code(s): 08317174 ICD Code: B19.20 - UNSPECIFIED VIRAL HEPATITIS C WITHOUT HEPATIC COMA Status: Chronic Priority: Medium Current Visit: No Qualifiers: Viral hepatitis chronicity: chronic Hepatic coma status: without hepatic coma Qualified Code(s): B18.2 - Chronic viral hepatitis C (6) Anxiety SNOMED Code(s): 43561811 ICD Code: F41.9 - ANXIETY DISORDER, UNSPECIFIED Status: Chronic Priority : High Current Visit: Yes - Patient Summary/Data Operative Procedure(s) Performed: None Complications: None Consults: Consultations 07/31/16 12:05 Consult to Case Management [CONS] Routine Consult to Spiritual Care [CONS] Routine 07/31/16 12:06 Consult for Substance Abuse [CONS] Routine 08/03/16 13:41 Consult to Physician [CONS] Routine Labs Pending at D/C: None Recommended Follow-up Testing/Procedures: Follow up with EMILIE العراقي within 2 days of discharge Planned Operative Procedure(s) after DC: None Hospital Course: As above - Patient Instructions Diet: Usual Diet as Tolerated, Drink 8-10+ Glasses/Day Activity: As Tolerated, Rest and Relax Today (can resume usual activities; exercise --slowly advance over the next week) Showering/Bathing: May Shower Notify Provider of: Fever, Increased Pain, Swelling and Redness, Nausea and/or Vomiting - Discharge Plan Prescriptions/Med Rec: Naproxen [Naprosyn] 500 mg PO Q12HR #20 tablet Clindamycin HCl 300 mg PO TID #30 capsule Home Medications: Home Meds Albuterol [Proventil HFA] 2 puff INH ASDIRECTED 11/03/15 [History] DULoxetine [Cymbalta] 60 mg PO DAILY 07/31/16 [History] traZODone 50 mg PO DAILY 07/31/16 [History] Clindamycin HCl 300 mg PO TID #30 capsule 08/04/16 [Rx] Naproxen [Naprosyn] 500 mg PO Q12HR #20 tablet 08/04/16 [Rx] Patient Handouts: Smoking Cessation, Tips for Success, [id number], Substance Use Disorder, Cellulitis, Adult, [id number] Forms: ED Department Discharge Referrals: Luisa Sanford, PATIENT FINANCIAL REPRESENTATIVE [Primary Care Provider] - - Discharge Summary/Plan Comment DC Time >30 min.: Yes (40 min) - General Info Date of Service: 08/04/16 Admission Dx/Problem (Free Text: Admission Diagnosis/Problem Admission Diagnosis/Problem Cellulitis Nanci is a 20yo female admitted for cellulitis to arm s/p methamphetamine IV injection- story has been variable from 4-14 days ago. She has hx of heroin addiction for which she was in treatment in June of this year. This morning she is sitting up eating, smiling and talkative with me. States she has minimal pain to left arm, slept well, good appetite. No concerns. She is anxious for discharge home today. Labs much improved today; VSS Functional Status: Reports: pain controlled, tolerating diet, ambulating, urinating. Denies: new symptoms - Review of Systems General: Reports: No Symptoms HEENT: Reports: no symptoms Pulmonary: Reports: no symptoms Cardiovascular: Reports: No Symptoms Gastrointestinal: Reports: No symptoms Genitourinary: Reports: no symptoms Musculoskeletal: Reports: other (minimal pain to left arm) Skin: Reports: other (erythema/induration to left arm/AC ) Neurological: Reports: No Symptoms Psychiatric: Reports: no symptoms - Patient Data Vitals - Most Recent: Last Vital Signs Temp 99.2 F 08/04/16 07:56 Pulse 69 08/04/16 07:47 Resp 18 08/04/16 07:56 BP 125/99 H 08/04/16 07:47 Pulse Ox 100 08/04/16 07:47 Weight - Most Recent: 119 lb 8 oz I&O - Last 24 hours: Intake & Output 08/03/16 08/04/16 08/04/16 22:59 06:59 14:59 Intake Total 1040 200 Output Total 2600 1300 Balance -1560 -1100 Lab Results - Last 24 hrs: Laboratory Results - last 24 hr 08/04/16 08/04/16 Range/Units 04:43 04:43 WBC 9.93 (3.98-10.04) K/mm3 RBC 4.38 (3.98-5.22) M/mm3 Hgb 14.2 (11.2-15.7) gm/L Hct 42.2 (34.1-44.9) % MCV 96.3 H (79.4-94.8) fl MCH 32.4 H (25.6-32.2) pg MCHC 33.6 (32.2-35.5) g/dl RDW Std Deviation 41.4 (36.4-46.3) fL Plt Count 317 (182-369) K/mm3 MPV 9.3 L (9.4-12.3) fl Neut % (Auto) 55.5 (34.0-71.1) % Lymph % (Auto) 24.4 (19.3-51.7) % Saline % (Auto) 8.7 (4.7-12.5) % Eos % (Auto) 1.1 (0.7-5.8) Baso % (Auto) 1.2 (0.1-1.2) % Neut # 5.52 (1.56-6.13) K/mm3 Lymph # 2.42 (1.18-3.74) K/mm3 Saline # 0.86 H (0.24-0.36) K/mm3 Eos # 0.11 (0.04-0.36) K/mm3 Baso # 0.12 H (0.01-0.08) K/mm3 Manual Slide Review Abnormal smear Sodium 135 L (136-145) mEq/L Potassium 4.5 (3.5-5.1) mEq/L Chloride 102 (98-107) mEq/L Carbon Dioxide 24 (21-32) mEq/L Anion Gap 13.5 (5-15) BUN 13 (7-18) mg/dL Creatinine 0.8 (0.55-1.02) mg/dL Est Cr Clr Drug Dosing 87.98 mL/min Estimated GFR (MDRD) > 60 (>60) mL/min BUN/Creatinine Ratio 16.3 (14-18) Glucose 111 H (74-106) mg/dL Calcium 8.8 (8.5-10.1) mg/dL Magnesium 2.3 (1.8-2.4) mg/dl C-Reactive Protein 1.9 H* (<1.0) mg/dL Med Orders - Current: Current Medications Acetaminophen (Tylenol) 650 mg PO Q4H PRN PRN Reason: Pain (Mild 1-3)/fever Last Admin: 08/02/16 16:48 Dose: 650 mg Albuterol/Ipratropium (Duoneb 3.0-0.5 Mg/3 Ml) 3 ml NEB Q4H PRN PRN Reason: Shortness Of Breath/wheezing Benzocaine/Menthol (Cepacol Sore Throat) 1 lozenge MUCMEM Q4HR PRN PRN Reason: Sore Throat Last Admin: 08/01/16 06:12 Dose: 1 lozenge Bisacodyl (Dulcolax) 5 mg PO DAILY PRN PRN Reason: Constipation Duloxetine HCl (Cymbalta) 60 mg PO DAILY [facility] Last Admin: 08/04/16 09:03 Dose: 60 mg Enoxaparin Sodium (Lovenox) 40 mg SUBCUT DAILY@1700 [facility] Last Admin: 08/03/16 17:31 Dose: 40 mg Hydralazine HCl (Apresoline) 20 mg IVPUSH Q4H PRN PRN Reason: Hypertension Promethazine HCl 12.5 mg/ (Sodium Chloride) 50.5 mls @ 100 mls/hr IV Q6H PRN PRN Reason: Nausea/Vomiting Piperacillin Sod/Tazobactam (Sod 4.5 gm/ Sodium Chloride) 100 mls @ 25 mls/hr IV Q8H [facility] Last Admin: 08/04/16 02:32 Dose: 25 mls/hr Vancomycin HCl 1 gm/ Sodium (Chloride) 250 mls @ 250 mls/hr IV Q8H [facility] Last Admin: 08/04/16 06:21 Dose: 250 mls/hr Lorazepam (Ativan) 0.5 mg PO Q8H PRN PRN Reason: Anxiety Last Admin: 08/04/16 02:38 Dose: 0.5 mg Magnesium Hydroxide (Milk Of Magnesia) 30 ml PO Q6H PRN PRN Reason: Constipation Last Admin: 08/03/16 09:34 Dose: 30 ml Magnesium Sulfate (Pharmacy To Dose - Magnesium Replacement) 0 dose .XX ASDIRECTED PRN PRN Reason: RX TO MONITOR MAG LEVELS Metoprolol Tartrate (Lopressor) 5 mg IVPUSH Q4H PRN PRN Reason: Tachycardia Miscellaneous Information (Remove Patch) 1 ea TRDERM Q24H [facility] Last Admin: 08/03/16 13:55 Dose: 1 ea Naproxen (Naprosyn) 500 mg PO Q12HR [facility] Last Admin: 08/04/16 09:04 Dose: 500 mg Nicotine (Habitrol) 21 mg TRDERM DAILY [facility] Last Admin: 08/04/16 09:04 Dose: 21 mg Ondansetron HCl (Zofran) 4 mg IV Q6H PRN PRN Reason: Nausea/Vomiting Last Admin: 08/01/16 22:16 Dose: 4 mg Polyethylene Glycol (Miralax) 17 gm PO DAILY PRN PRN Reason: Constipation Last Admin: 08/01/16 16:46 Dose: 17 gm Potassium Chloride (Pharmacy To Dose - Potassium Replacement) 0 dose .XX ASDIRECTED PRN PRN Reason: RX TO MONITOR K LEVELS Senna/Docusate Sodium (Senna Plus) 1 tab PO BID PRN PRN Reason: Constipation Last Admin: 08/01/16 04:42 Dose: 1 tab Sodium Chloride (Saline Flush) 10 ml FLUSH ASDIRECTED PRN PRN Reason: Keep Vein Open Last Admin: 07/31/16 10:04 Dose: 10 ml Temazepam (Restoril) 30 mg PO BEDTIME PRN PRN Reason: Sleep Trazodone HCl (Trazodone) 50 mg PO BEDTIME [facility] Last Admin: 08/03/16 21:40 Dose: 50 mg Vancomycin HCl (Pharmacy To Dose - Vancomycin) 0 dose .XX ASDIRECTED PRN PRN Reason: RX TO DOSE VANCOMYCIN Discontinued Medications Acetaminophen/Hydrocodone Bitart ([place] 325-5 Mg) 1 tab PO Q4H PRN PRN Reason: Pain (moderate 4-6) Last Admin: 08/01/16 04:44 Dose: 1 tab Al Hydroxide/Mg Hydroxide 30 (ml/ Lidocaine HCl 15 ml) 0 ml PO ONETIME ONE Stop: 08/02/16 12:08 Last Admin: 08/02/16 12:24 Dose: 45 ml Diphtheria/Tetanus/Acell Pertussis (Boostrix) 0.5 ml IM .ONCE ONE Stop: 07/31/16 20:57 Hydromorphone HCl (Dilaudid) 0.25 mg IVPUSH Q3H PRN PRN Reason: Pain (severe 7-10) Stop: 08/04/16 23:59 Hydromorphone HCl (Dilaudid) 1 mg IVPUSH Q4H PRN PRN Reason: Pain (severe 7-10) Stop: 08/04/16 23:59 Last Admin: 08/02/16 04:30 Dose: 1 mg Cefazolin Sodium/Dextrose 1 gm (/ Premix) 50 mls @ 100 mls/hr IV ONETIME ONE Stop: 07/31/16 10:49 Last Admin: 07/31/16 10:43 Dose: 100 mls/hr Vancomycin HCl 1 gm/ Sodium (Chloride) 250 mls @ 250 mls/hr IV ONETIME ONE Stop: 07/31/16 11:19 Last Admin: 07/31/16 11:31 Dose: 250 mls/hr Sodium Chloride (Normal Saline) 1,000 mls @ 125 mls/hr IV ASDIRECTED [facility] Last Admin: 08/02/16 06:50 Dose: 75 mls/hr Ceftriaxone Sodium 2 gm/ (Sodium Chloride) 100 mls @ 200 mls/hr IV Q24H [facility] Last Admin: 08/02/16 09:33 Dose: 200 mls/hr Vancomycin HCl 1 gm/ Sodium (Chloride) 250 mls @ 250 mls/hr IV Q8H [facility] Last Admin: 08/03/16 13:23 Dose: Not Given Sodium Chloride (Normal Saline) 1,000 mls @ 75 mls/hr IV ASDIRECTED [facility] Magnesium Sulfate 2 gm/ Premix 50 mls @ 25 mls/hr IV ONETIME ONE Stop: 08/02/16 11:59 Last Admin: 08/02/16 12:11 Dose: 25 mls/hr Piperacillin Sod/Tazobactam (Sod 4.5 gm/ Sodium Chloride) 100 mls @ 200 mls/hr IV ONETIME ONE Stop: 08/02/16 11:29 Last Admin: 08/02/16 12:22 Dose: 200 mls/hr Lorazepam (Ativan) 1 mg IV Q6H PRN PRN Reason: Anxiety Last Admin: 08/03/16 00:19 Dose: 1 mg Lorazepam (Ativan) 2 mg IVPUSH Q4H PRN PRN Reason: Seizures Methylprednisolone Sodium Succinate (Solu-Medrol) 125 mg IVPUSH ONETIME ONE Stop: 07/31/16 14:35 Last Admin: 07/31/16 14:54 Dose: 125 mg Methylprednisolone Sodium Succinate (Solu-Medrol) 125 mg IVPUSH ONETIME ONE Stop: 08/01/16 07:01 Last Admin: 08/01/16 06:04 Dose: 125 mg Oxycodone HCl (Oxycontin) 20 mg PO Q12HR [facility] Last Admin: 08/02/16 09:33 Dose: Not Given Pneumococcal Polyvalent Vaccine (Pneumovax 23) 0.5 ml IM .ONCE ONE Stop: 07/31/16 20:57 Pneumococcal Polyvalent Vaccine (Pneumovax 23) 0.5 ml IM .ONCE ONE Stop: 08/04/16 09:18 Potassium Chloride (Klor-Con M20) 20 meq PO Q3H ELSY Stop: 07/31/16 15:31 Last Admin: 07/31/16 14:55 Dose: 20 meq Sodium Chloride (Saline Flush) 10 ml FLUSH ASDIRECTED PRN PRN Reason: Keep Vein Open Stop: 08/02/16 18:00 Temazepam (Restoril) 30 mg PO BEDTIME PRN PRN Reason: Sleep Valacyclovir HCl (Valtrex) 1,000 mg PO BID [facility] Stop: 08/01/16 09:01 Last Admin: 08/01/16 03:45 Dose: Not Given Valacyclovir HCl (Valtrex) 1,000 mg PO BID ELSY Stop: 08/01/16 21:01 Valacyclovir HCl (Valtrex) 2,000 mg PO BID ELSY Stop: 08/01/16 21:01 Last Admin: 08/01/16 21:02 Dose: 2,000 mg Vancomycin HCl (Vancomycin) Confirm Administered Dose 1 gm .ROUTE .STK-MED ONE Stop: 08/03/16 10:48 Last Admin: 08/03/16 11:04 Dose: Not Given - Exam Quality Assessment: Reports: DVT prophylaxis General: Reports: alert, oriented, cooperative, no acute distress HEENT: Reports: Pupils equal, Pupils reactive, EOMI, Mucous membr. moist/pink Neck: Reports: supple Lungs: Reports: Clear to auscultation, Normal respiratory effort Cardiovascular: Reports: Regular Rate, Regular Rhythm Abdomen: Reports: bowel sounds present, soft, no tenderness (Female) Exam: Deferred Rectal (Female) Exam: Deferred Extremities: Reports: no edema, no calf tenderness, other (left arm/AC with mild erythema- significantly improved; induration is present but also improved) Skin: Reports: other (as above- erythema and induration to lt arm/AC is improved ) Neurological: Reports: no new focal deficit Psy/Mental Status: Reports: alert, normal affect, normal mood (pleasant, smiling and talkative with me today) *Q Meaningful Use (DIS) - VTE *Q VTE Criteria *Q: - Stroke *Q Stroke Criteria *Q: - AMI *Q AMI Criteria *Q:
[2016-08-04 11:25] VITALS: BP 117/62
--- NOTE | 2016-08-04 17:59 | CONS ---
CONSULTING PHYSICIAN: Chente Redmond MD DATE OF CONSULTATION: 08/04/2016 This is a 60-minute inpatient clinical event. IDENTIFICATION: The patient is a 20-year-old female who was admitted to the inpatient medical unit at [facility] in [place], [place], on 07/31/2016, secondary to left arm cellulitis. She is seen for psychiatric evaluation this morning. CHIEF COMPLAINT: "I was with some friends and they convinced me to shoot up." HISTORY OF PRESENT ILLNESS: The patient is a 20-year-old female who reports that she has been struggling to get sober since the beginning of this year. She states that she was using IV opioids and then went to treatment in May and has been staying away from opioids, but then she was hanging out with some friends last week, and they convinced her to use IV meth. She states "I missed my vein and then my arm started swelling up and so I decided to come to the hospital." She states that since she has been in the hospital, her mood has been "way better," and her arm is feeling a lot better as well. The patient notes also that her appetite has improved and states "I gained 15 pounds" since being in the hospital. The patient is currently on a regimen of Cymbalta and trazodone, and she has been on this combination of medications for about 2 years, and she feels it really helps with her mood as long as she stays sober. She denies that she is suicidal or homicidal. She denies any psychotic, delusional, or paranoid symptoms. She states that she had moved out to [place] from [facility] a little over a year ago, but she is planning on going back to [place] to be with family members near [place], [place], "next Tuesday," and the patient is looking forward to this development. She intends to followup with a psychiatrist down in [place] and also to go to , which she has been attending in [place]. Otherwise, the patient has no major complaints from a psychiatric standpoint today, and she is looking forward to getting discharged. She states that she will be doing her best to stay sober once she is discharged back to the community. MEDICATIONS: Medications at the time of presentation; 1. Cymbalta 60 mg daily. 2. Trazodone 50 mg at bedtime. 3. IV antibiotics. ALLERGIES: No known drug allergies. PAST MEDICAL HISTORY: History of hep C. REVIEW OF SYSTEMS: Aside from musculoskeletal and hepatic, all other major organ systems are negative at this point in time for acute difficulties or complications. FAMILY PSYCHIATRIC AND CD HISTORY: The patient reports mother has a history of bipolar affective disease and anxiety. Father was a heroin user and he overdosed and 2 years ago. Paternal grandmother had a history of schizophrenia. PAST PSYCHIATRIC AND CD HISTORY: The patient denies any previous psychiatric hospitalization. Reports one chemical dependancy treatment in May 2016 for opioids. She is attending AA and NA, and these classes are helping her. Denies any previous suicide attempts, self-injurious behaviors, or eating disorder history. Denies any previous psychiatric medication history. Past psychiatric diagnosis includes depression and anxiety. PRIMARY CARE PROVIDER: Luisa Sanford. SOCIAL HISTORY: The patient was born and raised in [facility]. She is the second of 3 siblings and 2 bothers. The patient biological parents were never . She was raised by a step-grandmother. The patient's highest level of education is high school diploma from [employer] in [place], [place]. 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 She has been in current relationship for 6 months. She has never been . She did have one at 15 years of age, and she still thinks about this a lot. The patient wants to start de-addiction counseling when she goes back to [place]. She denies any prior service or any current legal difficulties. She was raised Pentec[employer]al. She enjoys reading, spending time with friends, and spending time with her dog. She is currently living in [place], [place], with a friend, but is going back to [place] on Tuesday. MENTAL STATUS EXAM: The patient is a 20-year-old white female in no apparent distress. Speech is of regular rate and rhythm. The patient is cognitively oriented. Psychomotor activity is within normal limits. There are no abnormal motor movements or tics observed. Gait and station are normal. Mood is good. Affect is cooperative overall for the purposes of the inpatient psychiatric consult. There is no behavioral or stated evidence of acute suicidal or homicidal ideation or acute psychotic, delusional, or paranoid symptoms. Thought processes are organized. There are no manic symptoms or loose associations evident. Judgment and insight appear unimpaired at this point in time. Motivation for help is good. VITAL SIGNS: 5 feet 2 inches tall, 115 pounds, 94/56, 80, 14, 98.1 degrees. IMPRESSION: [place] I: 1. Anxiety disorder, not otherwise specified, F41.9. 2. Depression, not otherwise specified, F32.9. 3. History of opioid dependence, in remission. 4. History of meth abuse versus dependence. 5. Rule our post-traumatic stress disorder, F43.10. [place] II: None. [place] III: 1. History of hep C. 2. Status post left arm cellulitis. [place] IV: Severe. [place] V: 65. PLAN: 1. Sobriety. 2. Continue Cymbalta at 60 mg daily. 3. Continue trazodone 50 at bedtime. 4. Followup with outpatient psychiatry once discharge back to community. 5. AA/NA as scheduled and per the patient's discretion. 6. Medication compliance. 7. Would recommend that the patient reenter chemical dependency treatment program either in an inpatient or outpatient basis if needed if the patient is unable to maintain sobriety on her own once back in the community. 8. We will continue to follow up with the patient on an as-needed basis while she remains on the inpatient medical unit. 9. From a psychiatric standpoint, the patient does not appear to be a danger to herself or others and therefore appears safe to be discharged back to community once she is medically stable. 10.Crisis plan is in place. NELSON /[id number]
== END 2016-08-04 12:30 | disposition home or self-care (01) | DRG 603 ==
LOC: JD.ED 09:25 → JD.MS 11:58
PROVIDERS: ADMIT Internal Medicine; ATTEND Internal Medicine
DX: L03.114 Cellulitis of left upper limb (principal); F11.20 Opioid dependence, uncomplicated; F15.20 Other stimulant dependence, uncomplicated; E87.6 Hypokalemia; B00.1 Herpesviral vesicular dermatitis; J02.9 Acute pharyngitis, unspecified; J45.909 Unspecified asthma, uncomplicated; M79.7 Fibromyalgia; F41.9 Anxiety disorder, unspecified; F17.200 Nicotine dependence, unspecified, uncomplicated; B18.2 Chronic viral hepatitis C; F12.20 Cannabis dependence, uncomplicated; F32.9 Major depressive disorder, single episode, unspecified; F43.10 Post-traumatic stress disorder, unspecified; Z79.899 Other long term (current) drug therapy
CPT/HCPCS: 36415; 80048; 80053; 80202; 80306; 80349; 81003; 83735; 84703; 85025; 86140; 86694; 86695; 86696; 87040; 87081; 87430; 87449; 90732; 96365; 96367; 99222; 99232; 99284-25; 99285; A9270-GY; G0009; G0479; G0480; J0690; J0696; J1170; J1650; J2060; J2405; J2543; J2930; J3370; J3475; J7030; J7040; J7050

== ENCOUNTER 2017-08-26 00:34 | Inpatient (IN) | payer MEDICAID ==
[2017-08-26] MEDS ORDERED: Vancomycin 500 MG SDV IV STA (01:59)
[2017-08-26] MEDS ORDERED: Ampicillin/Sulbactam Na 3 GM in Sodium Chloride 0.9% 100 ML IV ONE ×2 (01:59→11:30)
--- NOTE | 2017-08-26 02:16 | EDM.PDOC ---
ED HPI GENERAL MEDICAL PROBLEM - General Chief Complaint: Skin Complaint Stated Complaint: poss infection or cyst on arm Time Seen by Provider: 08/26/17 01:09 Source of Information: Reports: Patient, Family (Mother) History Limitations: Reports: No Limitations - History of Present Illness INITIAL COMMENTS - FREE TEXT/NARRATIVE: The patient states that she injected crushed and dissolved an opioid pill into her right distal upper arm on 08/22/2017 just proximal to the antecubital fossa. She states that she missed, and immediately had swelling to the area. She developed erythema to the area today, and has had pain to the area, that has been getting worse, the entire time. She also states that she injected methamphetamine to the proximal right forearm on 08/24/2017, also missing, however, it was in a close, but different area. No recent fever. The area of swelling has not spontaneously drained. She has had an occasional cough, and has chronic shortness of breath related to anxiety. The patient has had cellulitis in the past, but no prior abscesses. The patient states that she has a history of using opioids, methamphetamine, marijuana, heroin, benzodiazepines, cocaine, and Suboxone. Her most recent use of methamphetamine was yesterday. Her most recent use of opioids, heroin, Suboxone, and marijuana was 2 days ago. She also takes benzodiazepines on occasion, including recently. She smokes marijuana on occasion. Her last use of cocaine was more than a year ago. She states that she has been to inpatient drug treatment 4 times, most recently in June 2017, for 3 weeks, but left early about 2 weeks ago. She has been using the aforementioned drugs since. She and her mother go to outpatient meetings about 3 times a week. The patient's PCP is Nadeen Sanford. 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: Musculoskeletal History: Reports: Fibromyalgia Psychiatric History: Reports: Addiction, Anxiety, Other (See Below) (Insomnia) - Infectious Disease History Infectious Disease History: Reports: Hepatitis C (Dx'd 2016, not treated) Social & Family History - Family History Family Medical History: Noncontributory - Tobacco Use Smoking Status *Q: Current Every Day Smoker Years of Tobacco use: 7 Packs/Tins Daily: 0.5 Packs/Tins Daily Comment: Down from 1 ppd - Caffeine Use Caffeine Use: Reports: None - Alcohol Use Alcohol Use History: Yes Days Per Week of Alcohol Use: 1 Number of Drinks Per Day: 1 Total Drinks Per Week: 1 Alcohol Use Frequency: Socially - Recreational Drug Use Recreational Drug Use: Yes Drug Use in Last 12 Months: Yes Recreational Drug Type: Reports: Benzodiazepines (occasionally), Cocaine (last = 2016), Heroin (last = 08/24/2017), Marijuana/Hashish (occasionally), Methamphetamine (last = 08/25/2017), Other (see below) (Opioids, last = 08/24/2017. Suboxone last = 08/24/2017) Other Recreational Drug Type: opiod ED ROS GENERAL - Review of Systems Review Of Systems: ROS reveals no pertinent complaints other than HPI. ED EXAM, SKIN/RASH Exam: See Below Exam Limited By: No Limitations General Appearance: Alert, WD/WN, No Apparent Distress Eye Exam: Bilateral Eye: Normal Inspection Ears: Normal External Exam, Hearing Grossly Normal Nose: Normal Inspection, No Blood Throat/Mouth: Normal Inspection, Normal Lips, Normal Voice, No Airway Compromise Head: Atraumatic, Normocephalic Neck: Normal Inspection, Full Range of Motion Respiratory/Chest: No Respiratory Distress, Lungs Clear, Normal Breath Sounds, No Accessory Muscle Use Cardiovascular: Normal Peripheral Pulses, Regular Rate, Rhythm, No Gallop, No JVD, No Murmur, No Rub Peripheral Pulses: 4+: Radial (L), Radial (R) GI/Abdominal: Normal Bowel Sounds, Soft, Non-Tender, No Organomegaly, No Distention, No Abnormal Bruit, No Mass (Female) Exam: Deferred Rectal (Female) Exam: Deferred Back Exam: Normal Inspection, Full Range of Motion, NT Extremities: Normal Capillary Refill, Other (Area of tender swelling measuring approximately 7 cm wide by 5 cm in length just proximal to the right antecubital fossa, with surrounding erythema that extends beyond that. The area swelling is indurated, with no palpable fluctuance. There is associated calor.) Neurological: Alert, Oriented, Normal Cognition, No Motor/Sensory Deficits Psychiatric: Normal Affect Skin: Warm, Dry, Intact, Normal Color, No Rash Course - Vital Signs Last Recorded V/S: Last Vital Signs Temp 36.9 C 08/26/17 00:42 Pulse 112 H 08/26/17 00:42 Resp 18 08/26/17 00:42 BP 138/82 08/26/17 00:42 Pulse Ox 100 08/26/17 00:42 - Orders/Labs/Meds Orders: Active Orders 24 hr Category Date Time Status Admission Status [Patient Status] [ADT] Routine ADT 08/26/17 02:49 Active CULTURE BLOOD [BC] Stat Lab 08/26/17 02:15 Received CULTURE BLOOD [BC] Stat Lab 08/26/17 02:20 Received METH-RESIST S.AUR,MRSA BY PCR [MOLEC] Stat Lab 08/26/17 02:40 Ordered Blood Culture x2 Reflex Set [OM.PC] Stat Oth 08/26/17 01:54 Ordered Labs: Laboratory Tests 08/26/17 08/26/17 Range/Units 02:15 02:15 WBC 9.99 (3.98-10.04) K/mm3 RBC 4.69 (3.98-5.22) M/mm3 Hgb 15.3 (11.2-15.7) gm/L Hct 44.4 (34.1-44.9) % MCV 94.7 (79.4-94.8) fl MCH 32.6 H (25.6-32.2) pg MCHC 34.5 (32.2-35.5) g/dl RDW Std Deviation 42.0 (36.4-46.3) fL Plt Count 273 (182-369) K/mm3 MPV 9.1 L (9.4-12.3) fl Neutrophils % (Manual) 67 H (40-60) % Band Neutrophils % 0 (0-10) % Lymphocytes % (Manual) 19 L (20-40) % Atypical Lymphs % 3 % Monocytes % (Manual) 10 (2-10) % Eosinophils % (Manual) 1 (0.7-5.8) % Basophils % (Manual) 0 L (0.1-1.2) Platelet Estimate Adequate Plt Morphology Comment Normal RBC Morph Comment Normal Sodium 143 (136-145) mEq/L Potassium 3.5 (3.5-5.1) mEq/L Chloride 102 (98-107) mEq/L Carbon Dioxide 29 (21-32) mEq/L Anion Gap 15.5 H (5-15) BUN 13 (7-18) mg/dL Creatinine 0.7 (0.55-1.02) mg/dL Est Cr Clr Drug Dosing 99.70 mL/min Estimated GFR (MDRD) > 60 (>60) mL/min BUN/Creatinine Ratio 18.6 H (14-18) Glucose 103 (74-106) mg/dL Calcium 9.9 (8.5-10.1) mg/dL Total Bilirubin 0.5 (0.2-1.0) mg/dL AST 95 H (15-37) U/L ALT 180 H (14-59) U/L Alkaline Phosphatase 109 (46-116) U/L Total Protein 8.8 H (6.4-8.2) g/dl Albumin 4.4 (3.4-5.0) g/dl Globulin 4.4 gm/dL Albumin/Globulin Ratio 1.0 (1-2) Meds: Medications Discontinued Medications Generic Name Dose Route Start Last Admin Trade Name Freq PRN Reason Stop Dose Admin Ampicillin Sodium/Sulbactam 100 mls @ 200 mls/hr 08/26/17 01:59 08/26/17 02: 41 Sodium 3 gm/ Sodium Chloride IV 08/26/17 02:28 200 mls/hr ONETIME ONE Administration Ibuprofen 600 mg 08/26/17 02:33 08/26/17 02:41 Motrin PO 08/26/17 02:34 600 mg ONETIME ONE Administration Vancomycin HCl 782.445 mg 08/26/17 01:59 Vancomycin 15 mg/kg (782.445 mg) 08/26/17 02:00 IV ONETIME STA - Re-Assessments/Exams Free Text/Narrative Re-Assessment/Exam: 08/26/17 02:09 The patient appears to have an abscess just proximal to her right antecubital fossa secondary to IV drug injection. She has not had a fever, and I do not hear a murmur, therefore endocarditis is not a concern at this time. I have ordered blood work, including 2 sets of blood cultures, and a urine test. I have also ordered a MRSA screen by PCR. I recommended to the patient that we admit her for IV antibiotics and surgical consult. The patient agreed. Case then discussed with Dr. Rodriguez at 02:03. He accepts the patient to be admitted to his service. He asked that I pen demarcate the area of erythema, and that I order an ultrasound of the abscess for the morning. He agrees with my choice of Unasyn and vancomycin at this time. Departure - Departure Time of Disposition: 02:05 Disposition: Admitted As Inpatient 65 Condition: Fair Clinical Impression: Abscess of right arm, IV drug abuse - Discharge Information - My Orders Last 24 Hours: My Active Orders 08/26/17 01:54 Blood Culture x2 Reflex Set [OM.PC] Stat 08/26/17 02:15 CULTURE BLOOD [BC] Stat 08/26/17 02:20 CULTURE BLOOD [BC] Stat 08/26/17 02:40 METH-RESIST S.AUR,MRSA BY PCR [MOLEC] Stat 08/26/17 02:49 Admission Status [Patient Status] [ADT] Routine - Assessment/Plan Last 24 Hours: My Active Orders 08/26/17 01:54 Blood Culture x2 Reflex Set [OM.PC] Stat 08/26/17 02:15 CULTURE BLOOD [BC] Stat 08/26/17 02:20 CULTURE BLOOD [BC] Stat 08/26/17 02:40 METH-RESIST S.AUR,MRSA BY PCR [MOLEC] Stat 08/26/17 02:49 Admission Status [Patient Status] [ADT] Routine
[2017-08-26] MEDS ORDERED: Ibuprofen 600 MG Tab PO ONE (02:33)
[2017-08-26] MEDS ORDERED: SODIUM CHLORIDE 0.9% IV ONE (04:30)
[2017-08-26] MEDS ORDERED: VANCOMYCIN IV ONE (04:30)
[2017-08-26] MEDS ORDERED: Ibuprofen 600 MG Tab PO PRN (05:00)
--- NOTE | 2017-08-26 09:37 | US ---
Ultrasound of right arm Technique: Multiple real-time images were obtained. Diffuse skin thickening is seen. 3.9 x 1.8 x 3.6 cm abnormality is seen within the right arm which is felt compatible with phlegmon. Subcutaneous edema is also seen. Several small cystic areas are seen within this abnormality which measure less than 5 mm and may represent small amount of fluid or small abscesses. Impression: 1. Abnormality as described above. Diagnostic code #3
[2017-08-26] MEDS ORDERED: HYDROmorphone 0.5 MG/0.5 ML SYRINGE IVPUSH ONE (09:44)
--- NOTE | 2017-08-26 11:24 | PCM.PREANE ---
Preanesthetic Assessment - Anesthesia/Transfusion/Family Hx Anesthesia History: Prior Anesthesia Without Reaction Family History of Anesthesia Reaction: No Transfusion History: No Prior Transfusion(s) - Review of Systems General: Fever, Weakness, Fatigue (for 3 days) Pulmonary: No Symptoms, Shortness of Breath (always has - fibromyalgia-asthma and smoker) Cardiovascular: No Symptoms Gastrointestinal: Abdominal Pain (this am) Neurological: No Symptoms Other: Reports: Liver Problems (hep c), Sinus Problem, Depression, Anxiety - Physical Assessment NPO Status Date: 08/25/17 NPO Status Time: 23:00 Pulse: 98 O2 Sat by Pulse Oximetry: 98 Respiratory Rate: 16 Blood Pressure: 108/72 Temperature: 97.5 F Vital Signs: Last Vital Signs Temp 97.5 F 08/26/17 09:32 Pulse 98 08/26/17 09:32 Resp 16 08/26/17 09:32 BP 108/72 08/26/17 09:50 Pulse Ox 98 08/26/17 09:32 Height: 5 ft 2 in Weight: 48.807 kg ASA Class: 2 Mental Status: Alert & Oriented x3 Airway Class: Mallampati = 1 Thyro-Mental Finger Breadths: 3 Mouth Opening Finger Breadths: 3 ROM/Head Extension: Full Lungs: Clear to Auscultation, Normal Respiratory Effort Cardiovascular: Regular Rate, Regular Rhythm - Lab Values: Laboratory Last Values WBC 9.99 K/mm3 (3.98-10.04) 08/26/17 02:15 RBC 4.69 M/mm3 (3.98-5.22) 08/26/17 02:15 Hgb 15.3 gm/L (11.2-15.7) 08/26/17 02:15 Hct 44.4 % (34.1-44.9) 08/26/17 02:15 MCV 94.7 fl (79.4-94.8) 08/26/17 02:15 MCH 32.6 pg (25.6-32.2) H 08/26/17 02:15 MCHC 34.5 g/dl (32.2-35.5) 08/26/17 02:15 RDW Std Deviation 42.0 fL (36.4-46.3) 08/26/17 02:15 Plt Count 273 K/mm3 (182-369) 08/26/17 02:15 MPV 9.1 fl (9.4-12.3) L 08/26/17 02:15 Neutrophils % (Manual) 67 % (40-60) H 08/26/17 02:15 Band Neutrophils % 0 % (0-10) 08/26/17 02:15 Lymphocytes % (Manual) 19 % (20-40) L 08/26/17 02:15 Atypical Lymphs % 3 % 08/26/17 02:15 Monocytes % (Manual) 10 % (2-10) 08/26/17 02:15 Eosinophils % (Manual) 1 % (0.7-5.8) 08/26/17 02:15 Basophils % (Manual) 0 (0.1-1.2) L 08/26/17 02:15 Platelet Estimate Adequate 08/26/17 02:15 Plt Morphology Comment Normal 08/26/17 02:15 RBC Morph Comment Normal 08/26/17 02:15 Sodium 143 mEq/L (136-145) 08/26/17 02:15 Potassium 3.5 mEq/L (3.5-5.1) 08/26/17 02:15 Chloride 102 mEq/L (98-107) 08/26/17 02:15 Carbon Dioxide 29 mEq/L (21-32) 08/26/17 02:15 Anion Gap 15.5 (5-15) H 08/26/17 02:15 BUN 13 mg/dL (7-18) 08/26/17 02:15 Creatinine 0.7 mg/dL (0.55-1.02) 08/26/17 02:15 Est Cr Clr Drug Dosing 99.70 mL/min 08/26/17 02:15 Estimated GFR (MDRD) > 60 mL/min (>60) 08/26/17 02:15 BUN/Creatinine Ratio 18.6 (14-18) H 08/26/17 02:15 Glucose 103 mg/dL (74-106) 08/26/17 02:15 Calcium 9.9 mg/dL (8.5-10.1) 08/26/17 02:15 Total Bilirubin 0.5 mg/dL (0.2-1.0) 08/26/17 02:15 AST 95 U/L (15-37) H 08/26/17 02:15 ALT 180 U/L (14-59) H 08/26/17 02:15 Alkaline Phosphatase 109 U/L (46-116) 08/26/17 02:15 Total Protein 8.8 g/dl (6.4-8.2) H 08/26/17 02:15 Albumin 4.4 g/dl (3.4-5.0) 08/26/17 02:15 Globulin 4.4 gm/dL 08/26/17 02:15 Albumin/Globulin Ratio 1.0 (1-2) 08/26/17 02:15 Urine HCG, Qual Negative (NEGATIVE) 08/26/17 05:40 MRSA (PCR) Negative 08/26/17 02:40 - Allergies Allergies/Adverse Reactions: Allergies Allergy/AdvReac Type Severity Reaction Status Date / Time No Known Allergies Allergy Verified 08/26/17 00:46 - Blood Blood Available: No - Acknowledgements Anesthesia Type Planned: MAC Pt an Appropriate Candidate for the Planned Anesthesia: Yes Alternatives and Risks of Anesthesia Discussed w Pt/Guardian: Yes Pt/Guardian Understands and Agrees with Anesthesia Plan: Yes PreAnesthesia Questionnaire HEENT History: Reports: Impaired Vision Other HEENT History: Wears glasses Respiratory History: Reports: Asthma Genitourinary History: Reports: Renal Calculus, STD Other Genitourinary History: Clamydia 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 Musculoskeletal History: Reports: Fibromyalgia Psychiatric History: Reports: Addiction, Anxiety, Other (See Below) (Insomnia) Dermatologic History: Reports: Cellulitis Other Dermatologic History: Cellulitis to Right arm. - Infectious Disease History Infectious Disease History: Reports: Hepatitis C (Dx'd 2015, not treated) - Past Surgical History Female Surgical History: Reports: Other (See Below) ( age 15) Other Neurological Surgeries/Procedures: Denies seizures. - SUBSTANCE USE Smoking Status *Q: Current Every Day Smoker Tobacco Use Within Last Twelve Months: Cigarettes, Other (See Below) Second Hand Smoke Exposure: Yes Days Per Week of Alcohol Use: 1 Number of Drinks Per Day: 1 Total Drinks Per Week: 1 Date of Last Drink: 08/25/17 Time of Last Drink: 22:00 Recreational Drug Use History: Yes Recreational Drug Type: Reports: Benzodiazepines (occasionally), Cocaine (last = 2016), Heroin (last = 08/24/2017), Marijuana/Hashish (occasionally), Methamphetamine (last = 08/25/2017), Other (see below) (Opioids, last = 08/24/2017. Suboxone last = 08/24/2017) Recreational Drug Last Use: 08/26/16 - HOME MEDS Home Medications: Home Meds traZODone 50 mg PO DAILY 07/31/16 [History] - CURRENT (IN HOUSE) MEDS Current Meds: Current Medications Ampicillin Sodium/Sulbactam (Sodium 3 gm/ Sodium Chloride) 100 mls @ 200 mls/ hr IV ONETIME ONE Stop: 08/26/17 11:46 Ibuprofen (Motrin) 600 mg PO Q8H PRN PRN Reason: Pain Discontinued Medications Hydromorphone HCl (Dilaudid) 0.5 mg IVPUSH ONETIME ONE Stop: 08/26/17 09:45 Last Admin: 08/26/17 09:50 Dose: 0.5 mg Ampicillin Sodium/Sulbactam (Sodium 3 gm/ Sodium Chloride) 100 mls @ 200 mls/ hr IV ONETIME ONE Stop: 08/26/17 02:28 Last Admin: 08/26/17 02:41 Dose: 200 mls/hr Vancomycin HCl 0.174952 gm/ (Sodium Chloride) 250 mls @ 250 mls/hr IV ONETIME ONE Stop: 08/26/17 05:29 Last Admin: 08/26/17 04:44 Dose: 250 mls/hr Ibuprofen (Motrin) 600 mg PO ONETIME ONE Stop: 08/26/17 02:34 Last Admin: 08/26/17 02:41 Dose: 600 mg
--- NOTE | 2017-08-26 11:32 | PCM.HP ---
H&P History of Present Illness - General Date of Service: 08/26/17 Admit Problem/Dx: Admission Diagnosis/Problem Admission Diagnosis/Problem Abscess of right upper extremity Source of Information: Patient - History of Present Illness Initial Comments - Free Text/Narative: 21 yo female, h/o substance abuse (opioid, methamphetamine), presents with pain , swelling, and redness of her RIGHT arm, which started over the past 5 days. Just prior to that, the patient had attempted injection of crushed opioids to that site, along with injection of methamphetamine. She has a history of RIGHT upper extremity cellulitis about a year ago, which required inpatient care, without need for an operation. She was admitted overnight through the ER, and received a dose of Dilaudid 0.5 mg IV this morning, with partial pain relief. For her substance abuse issue, she had previously undergone inpatient treatment , most recently in Jun 2017, but left the treatment facility early. Right Upper Arm Pain Score (Numeric/FACES): 10 - Related Data Allergies/Adverse Reactions: Allergies Allergy/AdvReac Type Severity Reaction Status Date / Time No Known Allergies Allergy Verified 08/26/17 00:46 Home Medications: Home Meds traZODone 50 mg PO DAILY 07/31/16 [History] Past Medical History HEENT History: Reports: Impaired Vision Other HEENT History: Wears glasses Respiratory History: Reports: Asthma Genitourinary History: Reports: Renal Calculus, STD Other Genitourinary History: Clamydia [employer] History: Reports: LMP (Approximate): Other (See Below) (No recent LMP, due to have implanted contraceptive) Other OB/BYN History: at age 15. Musculoskeletal History: Reports: Fibromyalgia Psychiatric History: Reports: Addiction, Anxiety, Other (See Below) (Insomnia) Dermatologic History: Reports: Cellulitis (July 2016, required inpatient care) Other Dermatologic History: Cellulitis to Right arm. - Infectious Disease History Infectious Disease History: Reports: Hepatitis C (Dx'd 2015, not treated) - Past Surgical History Other Neurological Surgeries/Procedures: Denies seizures. Social & Family History - Family History Family Medical History: Noncontributory Cardiac: Reports: Other (See Below) Other Cardiac Family History: Heart disease Endocrine/Metabolic: Reports: Diabetes, type II Oncologic: Reports: Colon - Tobacco Use Smoking Status *Q: Current Every Day Smoker Years of Tobacco use: 7 Packs/Tins Daily: 0.5 Used Tobacco, but Quit: No Month/Year Tobacco Last Used: 08/26/17 Second Hand Smoke Exposure: Yes - Caffeine Use Caffeine Use: Reports: None Caffeine Use Comment: Drinks 1-2 cans per day. - Alcohol Use Days Per Week of Alcohol Use: 1 Number of Drinks Per Day: 1 Total Drinks Per Week: 1 Date of Last Drink: 08/25/17 Time of Last Drink: 22:00 - Recreational Drug Use Recreational Drug Use: Yes Drug Use in Last 12 Months: Yes Recreational Drug Type: Reports: Benzodiazepines (occasionally), Cocaine (last = 2016), Heroin (last = 08/24/2017), Marijuana/Hashish (occasionally), Methamphetamine (last = 08/25/2017), Other (see below) (Opioids, last = 08/24/2017. Suboxone last = 08/24/2017) Other Recreational Drug Type: opiod Recreational Drug Use Frequency: Daily Recreational Drug Last Use: 08/26/16 - Living Situation & Occupation Living situation: Reports: Other (Lives with her mother) H&P Review of Systems - Review of Systems: Review Of Systems: See Below General: Reports: No Symptoms HEENT: Reports: No Symptoms Pulmonary: Reports: No Symptoms Cardiovascular: Reports: No Symptoms Gastrointestinal: Reports: Abdominal Pain (mild abdominal pain, which she attributes due to hunger) Genitourinary: Reports: No Symptoms Musculoskeletal: Reports: No Symptoms Exam - Exam Exam: See Below - Vital Signs Vital Signs: Last Vital Signs Temp 36.4 C 08/26/17 09:32 Pulse 98 08/26/17 09:32 Resp 16 08/26/17 09:32 BP 108/72 08/26/17 09:50 Pulse Ox 98 08/26/17 09:32 Weight: 48.807 kg - Exam General: Alert, Oriented, Cooperative HEENT: Conjunctiva Clear Neck: Supple, Trachea Midline. No: Lymphadenopathy Lungs: Clear to Auscultation, Normal Respiratory Effort Cardiovascular: Regular Rate, Regular Rhythm, Normal S1, Normal S2 GI/Abdominal Exam: Soft, Non-Tender Extremities: Other (Area of erythema along the antecubital fossa and just proximal. Central area of swelling just proximal to the antecubital fossa, measuring about 7x5 cm. Area is tender.) Peripheral Pulses: 2+: Radial (R) Neuro Extensive - Mental Status: Alert, Normal Mood/Affect, Normal Cognition Neuro Extensive - Motor, Sensory, Reflexes: Other (Motor 5/5 bilateral uln/med/ rad. Sensation intact to light touch bilateral uln/med/rad.) Psychiatric: Alert, Normal Affect, Normal Mood - Patient Data Lab Results Last 24 hrs: Laboratory Results - last 24 hr 08/26/17 08/26/17 08/26/17 Range/Units 02:15 02:15 02:40 WBC 9.99 (3.98-10.04) K/mm3 RBC 4.69 (3.98-5.22) M/mm3 Hgb 15.3 (11.2-15.7) gm/L Hct 44.4 (34.1-44.9) % MCV 94.7 (79.4-94.8) fl MCH 32.6 H (25.6-32.2) pg MCHC 34.5 (32.2-35.5) g/dl RDW Std Deviation 42.0 (36.4-46.3) fL Plt Count 273 (182-369) K/mm3 MPV 9.1 L (9.4-12.3) fl Neutrophils % (Manual) 67 H (40-60) % Band Neutrophils % 0 (0-10) % Lymphocytes % (Manual) 19 L (20-40) % Atypical Lymphs % 3 % Monocytes % (Manual) 10 (2-10) % Eosinophils % (Manual) 1 (0.7-5.8) % Basophils % (Manual) 0 L (0.1-1.2) Platelet Estimate Adequate Plt Morphology Comment Normal RBC Morph Comment Normal Sodium 143 (136-145) mEq/L Potassium 3.5 (3.5-5.1) mEq/L Chloride 102 (98-107) mEq/L Carbon Dioxide 29 (21-32) mEq/L Anion Gap 15.5 H (5-15) BUN 13 (7-18) mg/dL Creatinine 0.7 (0.55-1.02) mg/dL Est Cr Clr Drug Dosing 99.70 mL/min Estimated GFR (MDRD) > 60 (>60) mL/min BUN/Creatinine Ratio 18.6 H (14-18) Glucose 103 (74-106) mg/dL Calcium 9.9 (8.5-10.1) mg/dL Total Bilirubin 0.5 (0.2-1.0) mg/dL AST 95 H (15-37) U/L ALT 180 H (14-59) U/L Alkaline Phosphatase 109 (46-116) U/L Total Protein 8.8 H (6.4-8.2) g/dl Albumin 4.4 (3.4-5.0) g/dl Globulin 4.4 gm/dL Albumin/Globulin Ratio 1.0 (1-2) Urine HCG, Qual (NEGATIVE) MRSA (PCR) Negative 08/26/17 Range/Units 05:40 WBC (3.98-10.04) K/mm3 RBC (3.98-5.22) M/mm3 Hgb (11.2-15.7) gm/L Hct (34.1-44.9) % MCV (79.4-94.8) fl MCH (25.6-32.2) pg MCHC (32.2-35.5) g/dl RDW Std Deviation (36.4-46.3) fL Plt Count (182-369) K/mm3 MPV (9.4-12.3) fl Neutrophils % (Manual) (40-60) % Band Neutrophils % (0-10) % Lymphocytes % (Manual) (20-40) % Atypical Lymphs % % Monocytes % (Manual) (2-10) % Eosinophils % (Manual) (0.7-5.8) % Basophils % (Manual) (0.1-1.2) Platelet Estimate Plt Morphology Comment RBC Morph Comment Sodium (136-145) mEq/L Potassium (3.5-5.1) mEq/L Chloride (98-107) mEq/L Carbon Dioxide (21-32) mEq/L Anion Gap (5-15) BUN (7-18) mg/dL Creatinine (0.55-1.02) mg/dL Est Cr Clr Drug Dosing mL/min Estimated GFR (MDRD) (>60) mL/min BUN/Creatinine Ratio (14-18) Glucose (74-106) mg/dL Calcium (8.5-10.1) mg/dL Total Bilirubin (0.2-1.0) mg/dL AST (15-37) U/L ALT (14-59) U/L Alkaline Phosphatase (46-116) U/L Total Protein (6.4-8.2) g/dl Albumin (3.4-5.0) g/dl Globulin gm/dL Albumin/Globulin Ratio (1-2) Urine HCG, Qual Negative (NEGATIVE) MRSA (PCR) Result Diagrams: 08/26/17 02:15 08/26/17 02:15 Imaging Impressions Last 24 hrs: Ultrasound of RIGHT arm: Diffuse skin thickening is seen. 3.9 x 1.8 x 3.6 cm abnormality is seen within the RIGHT arm, which s felt compatible with phlegmon. Subcutaneous edema is also seen. - Problem List (1) Abscess of right arm SNOMED Code(s): 303794509 ICD Code: L02.413 - CUTANEOUS ABSCESS OF RIGHT UPPER LIMB Status: Acute Current Visit: No Problem List Initiated/Reviewed/Updated: Yes Orders Last 24hrs: Active Orders 24 hr Category Date Time Status Admission Status [Patient Status] [ADT] Routine ADT 08/26/17 02:49 Active Up ad Karely [RC] ASDIRECTED Care 08/26/17 05:00 Active Consult for Substance Abuse [CONS] Urgent Cons 08/26/17 11:14 Ordered NPO Now [Nothing per Oral Now Diet] [DIET] Diet 08/26/17 Breakfast Active CULTURE BLOOD [BC] Stat Lab 08/26/17 02:15 Received CULTURE BLOOD [BC] Stat Lab 08/26/17 02:20 Received HCG QUALITATIVE,URINE [URCHEM] Stat Lab 08/26/17 05:40 Ordered METH-RESIST S.AUR,MRSA BY PCR [MOLEC] Stat Lab 08/26/17 02:40 Ordered Ampicillin/Sulbactam Na [Unasyn] 3 gm Med 08/26/17 11:17 Ordered Sodium Chloride 0.9% [Normal Saline] 100 ml IV ONETIME Ibuprofen [Motrin] Med 08/26/17 05:00 Active 600 mg PO Q8H PRN Blood Culture x2 Reflex Set [OM.PC] Stat Oth 08/26/17 01:54 Ordered Resuscitation Status Routine Resus Stat 08/26/17 04:56 Ordered Medication Orders Ibuprofen (Motrin) 600 mg PO Q8H PRN PRN Reason: Pain Assessment/Plan Comment:: 21 yo female, h/o substance abuse (recently methamphetamine and opioid), with recent attempted self injection of opioid into the RIGHT upper extremity, with a RIGHT upper extremity subcutaneous abscess, admitted overnight through the ER. - Recommend incision and drainage of RIGHT upper extremity abscess. Indications , risks, and benefits were discussed with the patient in detail. Risks include bleeding, infection, damage to surrounding structures, and need for additional procedures. I also explained to the patient the need for post-operative daily local wound care. - Continue IV Unasyn, which will be given aerospace control and warning systems to the OR. (first dose given overnight). MRSA screen negative. Patient had received one dose of vancomycin overnight. Will discontinue. - Will place referral for licensed substance abuse counselor. - Discussed case with renal social worker. - Offered psychiatry evaluation to the patient, which she declined. Yasmani Perez M.D., F.A.C.S. General Surgery Pager: [phone]
[2017-08-26] MEDS ORDERED: Bupivacaine 0.5% 30 ML SDV ONE (11:46)
[2017-08-26] MEDS ORDERED: Lidocaine 1% with EPINEPHrine 1:100,000 20 ML MDV ONE (11:46)
[2017-08-26] MEDS ORDERED: fentaNYL 100 MCG/2 ML SDV ONE (11:53)
[2017-08-26] MEDS ORDERED: Propofol 200 MG/20 ML SDV ONE (11:53)
[2017-08-26] MEDS ORDERED: Midazolam 1 MG/ML 2 ML SDV ONE (11:53)
[2017-08-26] MEDS ORDERED: Lactated Ringers 1,000 ML ONE (11:54)
[2017-08-26] MEDS ORDERED: fentaNYL 100 MCG/2 ML SDV IVPUSH PRN (11:54)
[2017-08-26] MEDS ORDERED: Ondansetron 4 MG/2 ML SDV IVPUSH PRN (11:54)
--- NOTE | 2017-08-26 12:21 | PCM.POSTAN ---
POST ANESTHESIA ASSESSMENT - MENTAL STATUS Mental Status: Alert, Oriented - VITAL SIGNS Pulse Rate: 91 SaO2: 100 Resp Rate: 15 Blood Pressure: 95/61 Temperature: 97.6 F - RESPIRATORY Respiratory Status: Respiratory Rate WNL, Airway Patent, O2 Saturation Stable, Supplemental Oxygen - CARDIOVASCULAR CV Status: Pulse Rate WNL, Blood Pressure Stable - GASTROINTESTINAL GI Status: No Symptoms - PAIN Pain Score: 2 - POST OP HYDRATION Hydration Status: Adequate & Stable
--- NOTE | 2017-08-26 12:41 | PCM.OPNOTE ---
- General Post-Op/Procedure Note Date of Surgery/Procedure: 08/26/17 Operative Procedure(s): Incision and drainage of RIGHT upper extremity subcutaneous abscess Findings: Abscess collection located just proximal to the RIGHT antecubital fossa. Purulent fluid drained from the RIGHT upper extremity subcutaneous space. Fluid swab sent for culture and sensitivity. Pre Op Diagnosis: RIGHT upper extremity subcutaneous abscess Post-Op Diagnosis: RIGHT upper extremity subcutaneous abscess Anesthesia Technique: MAC Primary Surgeon: Yasmani Perez Anesthesia Provider: Nixon Ruvalcaba Fluid Replacement, Intraop: 500 (crystalloid) EBL in mLs: 2 Condition: Good Free Text/Narrative:: Indications for surgery: The patient is a 21 yo female, with a history of substance abuse, who attempted to inject opioid into her RIGHT upper extremity vein about one week ago. Two days after this, she developed pain and swelling at the RIGHT arm. The patient was diagnosed with a RIGHT upper extremity abscess , and was consented for urgent surgery to drain the abscess. Indications, risks , and benefits were discussed with the patient in detail. Description of procedure: After surgical consent was verified, the patient was brought to the main OR. Anesthesia performed MAC without complications. The patient was positioned supine with the RIGHT upper extremity abducted. Perioperative anitbiotic ( Unasyn 3 gm IV) was administered. A surgical time-out was performed to verify proper patient, proper site, and proper procedure. Local anesthetic (1:1 solution of 1% lidocaine with epinephrine and 0.5% bupivacaine) was injected at the surgical site. A 4 cm transverse incision was made overlying the area of greatest swelling. Immediately, purulent fluid drainged from the subcutaneous tissue. The fluid was sent for culture. The rest was suctioned out. All loculations were broken up, and the cavity was thoroughly irrigated with saline. Hemostasis was ensured. Additional local anesthetic was injected around the surgical wound (total used throughout the case was 10 cc). The wound was then packed with 4x4 gauze and covered with dry 4x4 gauze and secured with an Kerlix gauze. The patient tolerated the procedure well, was brought out of anesthesia, and transported to the PACU in stable condition. At the end of the case, all needle , instrument, and gauze counts were correct. I was presented and scrubbed for the entirety of the case. Yasmani Perez M.D., F.A.C.S. General Surgery Pager: [phone]
[2017-08-26] MEDS ORDERED: Acetaminophen/oxyCODONE 325-5 MG Tab PO PRN (13:21)
[2017-08-26] MEDS ORDERED: Acetaminophen 325 MG Tab PO PRN (13:22)
[2017-08-26] MEDS ORDERED: Albuterol 6.7 GM Inhaler INH PRN (13:24)
--- NOTE | 2017-08-26 14:07 | PCM48HPAN ---
Post Anesthesia Note - EVALUATION WITHIN 48HRS OF ANESTHETIC Vital Signs in Normal Range: Yes Patient Participated in Evaluation: Yes Respiratory Function Stable: Yes Airway Patent: Yes Cardiovascular Function Stable: Yes Hydration Status Stable: Yes Pain Control Satisfactory: Yes Nausea and Vomiting Control Satisfactory: Yes Mental Status Recovered: Yes
--- NOTE | 2017-08-26 14:15 | PCM.SN ---
- Free Text/Narrative Note: Discussed with patient the intraoperative findings. Explained to patient postoperative care treatment plan. - Will plan for post-op wound dressing changes. - Instructed her on tobacco cessation. Patient is interested in quitting tobacco use. She is also interested in medical treatment to reduce cravings. Will look into ways to enroll her in tobacco cessation program. - Continue IV Unasyn. - Substance abuse counselor will evaluate patient this afternoon. Yasmani Perez M.D., F.A.C.S. General Surgery Pager: [phone]
[2017-08-26] MEDS ORDERED: Ibuprofen 800 MG Tab PO PRN (14:43)
[2017-08-26] MEDS ORDERED: Ketorolac 30 MG/ML SDV IVPUSH PRN (16:33)
[2017-08-26] MEDS ORDERED: LORazepam 2 MG/ML SDV ONE (16:54)
[2017-08-26] MEDS: LORazepam 2 MG/ML SDV IVPUSH PRN (17:02)
[2017-08-26] MEDS: Nicotine 14 MG/24 Hr Patch TRDERM SCH (17:05)
[2017-08-26] MEDS: Acetaminophen/Codeine 300-30 MG Tab PO PRN (17:05)
[2017-08-26] MEDS: Ampicillin/Sulbactam Na 3 GM in Sodium Chloride 0.9% 100 ML IV SCH (17:14)
[2017-08-26] MEDS ORDERED: traZODone 50 MG Tab PO PRN (22:00)
[2017-08-27] MEDS: Acetaminophen/Codeine 300-30 MG Tab PO PRN ×2 (00:26→09:50)
[2017-08-27] MEDS: Ampicillin/Sulbactam Na 3 GM in Sodium Chloride 0.9% 100 ML IV SCH ×3 (00:27→12:35)
[2017-08-27] MEDS: LORazepam 2 MG/ML SDV IVPUSH PRN ×2 (02:45→12:30)
[2017-08-27] MEDS: Nicotine 14 MG/24 Hr Patch TRDERM SCH (09:49)
[2017-08-27 11:39] VITALS: BP 110/67
--- NOTE | 2017-08-27 13:07 | PCM.PN ---
- General Info Date of Service: 08/27/17 Admission Dx/Problem (Free Text): RIGHT upper extremity subcutaneous abscess and cellulitis. Subjective Update: Overnight, pain was controlled with oral Tylenol with codeine. She also received a dose of Ativan IV. Denies nausea/emesis. Tolerating regular diet. Pain overall has improved since before surgery. - Patient Data Vitals - Most Recent: Last Vital Signs Temp 36.8 C 08/27/17 11:13 Pulse 87 08/27/17 11:13 Resp 19 08/27/17 11:13 BP 110/67 08/27/17 11:13 Pulse Ox 99 08/27/17 11:13 Weight - Most Recent: 51.483 kg I&O - Last 24 Hours: Intake & Output 08/26/17 08/27/17 08/27/17 22:59 06:59 14:59 Intake Total 1170 2400 Output Total 200 1200 Balance 970 1200 Henry Results Last 24 Hours: Microbiology 08/26/17 12:00 Gram Stain - Final Arm, Right - Upper 08/26/17 02:20 Aerobic Blood Culture - Preliminary Blood - Venous - Lab Draw NO GROWTH AFTER 1 DAY Anaerobic Blood Culture - Preliminary NO GROWTH AFTER 1 DAY 08/26/17 02:15 Aerobic Blood Culture - Preliminary Blood - Venous NO GROWTH AFTER 1 DAY Anaerobic Blood Culture - Preliminary NO GROWTH AFTER 1 DAY Med Orders - Current: Current Medications Acetaminophen/Codeine Phosphate (Tylenol With Codeine No.3 300mg/30mg) 2 tab PO Q4H PRN PRN Reason: Pain Last Admin: 08/27/17 09:50 Dose: 2 tab Albuterol (Proventil Hfa) 0 gm INH Q4H PRN PRN Reason: Shortness of Breath Ampicillin Sodium/Sulbactam (Sodium 3 gm/ Sodium Chloride) 100 mls @ 200 mls/ hr IV Q6H ELSY Last Admin: 08/27/17 12:35 Dose: 200 mls/hr Ibuprofen (Motrin) 800 mg PO Q8H PRN PRN Reason: Pain Last Admin: 08/26/17 14:49 Dose: 800 mg Ketorolac Tromethamine (Toradol) 30 mg IVPUSH Q6H PRN PRN Reason: Pain Last Admin: 08/26/17 20:18 Dose: 30 mg Lorazepam (Ativan) 0.5 mg IVPUSH Q4H PRN PRN Reason: Anxiety Last Admin: 08/27/17 12:30 Dose: 0.5 mg Miscellaneous Information (Remove Patch) 1 ea TRDERM DAILY [facility] Last Admin: 08/27/17 09:50 Dose: 1 ea Nicotine (Habitrol) 14 mg TRDERM DAILY [facility] Last Admin: 08/27/17 09:49 Dose: 14 mg Trazodone HCl (Trazodone) 50 mg PO ONETIME PRN PRN Reason: Insomnia Discontinued Medications Acetaminophen (Tylenol) 650 mg PO Q4H PRN PRN Reason: Pain Bupivacaine HCl (Marcaine 0.5%) Confirm Administered Dose 30 ml .ROUTE .STK-MED ONE Stop: 08/26/17 11:47 Last Admin: 08/26/17 12:05 Dose: 5 ml Fentanyl (Sublimaze) Confirm Administered Dose 100 mcg .ROUTE .STK-MED ONE Stop: 08/26/17 11:54 Fentanyl (Sublimaze) 50 mcg IVPUSH Q5M PRN PRN Reason: Pain Stop: 08/26/17 14:30 Hydromorphone HCl (Dilaudid) 0.5 mg IVPUSH ONETIME ONE Stop: 08/26/17 09:45 Last Admin: 08/26/17 09:50 Dose: 0.5 mg Ampicillin Sodium/Sulbactam (Sodium 3 gm/ Sodium Chloride) 100 mls @ 200 mls/ hr IV ONETIME ONE Stop: 08/26/17 02:28 Last Admin: 08/26/17 02:41 Dose: 200 mls/hr Vancomycin HCl 0.682497 gm/ (Sodium Chloride) 250 mls @ 250 mls/hr IV ONETIME ONE Stop: 08/26/17 05:29 Last Admin: 08/26/17 04:44 Dose: 250 mls/hr Ampicillin Sodium/Sulbactam (Sodium 3 gm/ Sodium Chloride) 100 mls @ 200 mls/ hr IV ONETIME ONE Stop: 08/26/17 11:59 Last Admin: 08/26/17 14:04 Dose: Not Given Lactated Ringer's (Ringers, Lactated) Confirm Administered Dose 1,000 mls @ as directed .ROUTE .STK-MED ONE Stop: 08/26/17 11:55 Ibuprofen (Motrin) 600 mg PO ONETIME ONE Stop: 08/26/17 02:34 Last Admin: 08/26/17 02:41 Dose: 600 mg Ibuprofen (Motrin) 600 mg PO Q8H PRN PRN Reason: Pain Lidocaine/Epinephrine (Xylocaine 1% With Epinephrine 1:100,000) Confirm Administered Dose 20 ml .ROUTE .STK-MED ONE Stop: 08/26/17 11:47 Last Admin: 08/26/17 12:05 Dose: 5 ml Lorazepam (Ativan) Confirm Administered Dose 2 mg .ROUTE .STK-MED ONE Stop: 08/26/17 16:55 Last Admin: 08/26/17 17:08 Dose: Not Given Midazolam HCl (Versed 1 Mg/Ml) Confirm Administered Dose 2 mg .ROUTE .STK-MED ONE Stop: 08/26/17 11:54 Ondansetron HCl (Zofran) 4 mg IVPUSH ONETIME PRN PRN Reason: Nausea/Vomiting Stop: 08/26/17 14:30 Propofol (Diprivan 20 Ml) Confirm Administered Dose 200 mg .ROUTE .STK-MED ONE Stop: 08/26/17 11:54 - Exam General: Alert, Oriented, Cooperative Extremities: Other (RIGHT upper extremity dressing taken down. Open 4 cm skin wound just proximal to the antecubital fossa. Wound base is clean. Surrounding erythema improved. No fluctuance. Mild surrounding edema. Wound itself is tender. Removal of dressing caused severe pain.) - Problem List & Annotations (1) Abscess of right arm SNOMED Code(s): 885730515 Code(s): L02.413 - CUTANEOUS ABSCESS OF RIGHT UPPER LIMB Status: Acute Current Visit: No - Problem List Review Problem List Initiated/Reviewed/Updated: Yes - My Orders Last 24 Hours: My Active Orders 08/26/17 13:24 Albuterol [Proventil HFA] 0 gm INH Q4H PRN 08/26/17 14:43 Ibuprofen [Motrin] 800 mg PO Q8H PRN 08/26/17 16:32 Acetaminophen/Codeine [Tylenol with Codeine No.3 300MG/30MG] 2 tab PO Q4H PRN 08/26/17 16:33 Ketorolac [Toradol] 30 mg IVPUSH Q6H PRN 08/26/17 16:57 LORazepam [Ativan] 0.5 mg IVPUSH Q4H PRN 08/26/17 17:00 Nicotine [Habitrol] 14 mg TRDERM DAILY 08/26/17 18:00 Ampicillin/Sulbactam Na [Unasyn] 3 gm Sodium Chloride 0.9% [Normal Saline] 100 ml IV Q6H 08/26/17 22:00 traZODone 50 mg PO ONETIME PRN 08/26/17 Dinner Regular Diet [DIET] 08/27/17 09:00 Remove Patch 1 ea TRDERM DAILY - Plan Plan:: 21 yo female, h/o substance abuse (recently methamphetamine and opioid), with recent attempted self injection of opioid into the RIGHT upper extremity, with a RIGHT upper extremity subcutaneous abscess and cellulitis, POD#1 s/p I&D of RIGHT upper extremity subcutaneous abscess. Patient has been receiving Unasyn IV post-op. - Wet-to-dry dressing change performed at the bedside, using 4x4 gauze, saline, and Kerlix wrap. - Discharge home today. Will continue outpatient Augmentin for a total of one week. - The patient's case was discussed with the substance abuse counselor yesterday. Appreciate her feedback. - Patient will F/U with [facility] as outpatient. Yasmani Perez M.D., F.A.C.S. General Surgery Pager: [phone]
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
--- NOTE | 2017-08-27 13:45 | PCM.DCSUM1 ---
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 Later that day, she went to the OR for incision and drainage of the RIGHT upper extremity abscess. She was placed on IV Unsyn during her hospitalization. Pain control was achieved with Tylenol with codeine, with PRN Ativan. Post-operatively, she underwent evaluation by Yves Ho, substance abuse counselor. A plan was developed for outpatient substance abuse follow-up. On POD#1, a dressing change and wound check was performed at the bedside. With improvement in the infection, the patient will be discharged home with one week of Unasyn. Gram stain showed gram positive cocci, and her MRSA screen was negative. Yasmani Perez M.D., F.A.C.S. General Surgery Pager: [phone] - Discharge Data Discharge Date: 08/27/17 Discharge Disposition: Home, Self-Care 01 Condition: Good - Discharge Diagnosis/Problem(s) (1) Abscess of right arm SNOMED Code(s): 277968994 ICD Code: L02.413 - CUTANEOUS ABSCESS OF RIGHT UPPER LIMB Status: Acute Current Visit: No - Patient Summary/Data Operative Procedure(s) Performed: Incision and drainage of RIGHT upper extremity subcutaneous abscess Consults: Consultations 08/26/17 11:14 Consult for Substance Abuse [CONS] Urgent - Discharge Plan Prescriptions/Med Rec: Acetaminophen/Codeine [Tylenol with Codeine No.3 300MG/30MG] 1 tab PO Q4H PRN # 15 tablet PRN Reason: Pain Amoxicillin/Potassium Clav [Augmentin 875-125 Tablet] 1 each PO BID #14 tablet Ibuprofen [IJD: Ibuprofen] 800 mg PO Q8H PRN #30 tablet PRN Reason: Pain Nicotine [Habitrol] 14 mg TRDERM DAILY #7 patch Home Medications: Home Meds traZODone 50 mg PO DAILY 07/31/16 [History] Acetaminophen/Codeine [Tylenol with Codeine No.3 300MG/30MG] 1 tab PO Q4H PRN # 15 tablet 08/27/17 [Rx] Amoxicillin/Potassium Clav [Augmentin 875-125 Tablet] 1 each PO BID #14 tablet 08/27/17 [Rx] Ibuprofen [IJD: Ibuprofen] 800 mg PO Q8H PRN #30 tablet 08/27/17 [Rx] Nicotine [Habitrol] 14 mg TRDERM DAILY #7 patch 08/27/17 [Rx] Patient Handouts: Steps to Quit Smoking Referrals: Yasmani Perez MD [Physician] - (Follow-up on September 02, in the ER at 11:[address] Byrd.) - General Info Date of Service: 08/27/17 Subjective Update: See Progress Note. Functional Status: Reports: Pain Controlled - Patient Data Vitals - Most Recent: Last Vital Signs Temp 36.8 C 08/27/17 11:13 Pulse 87 08/27/17 11:13 Resp 19 08/27/17 11:13 BP 110/67 08/27/17 11:13 Pulse Ox 99 08/27/17 11:13 Weight - Most Recent: 51.483 kg I&O - Last 24 hours: Intake & Output 08/26/17 08/27/17 08/27/17 22:59 06:59 14:59 Intake Total 1170 2400 Output Total 200 1200 Balance 970 1200 HOWIE Results - Last 24 hrs: Microbiology 08/26/17 12:00 Gram Stain - Final Arm, Right - Upper 08/26/17 02:20 Aerobic Blood Culture - Preliminary Blood - Venous - Lab Draw NO GROWTH AFTER 1 DAY Anaerobic Blood Culture - Preliminary NO GROWTH AFTER 1 DAY 08/26/17 02:15 Aerobic Blood Culture - Preliminary Blood - Venous NO GROWTH AFTER 1 DAY Anaerobic Blood Culture - Preliminary NO GROWTH AFTER 1 DAY Med Orders - Current: Current Medications Acetaminophen/Codeine Phosphate (Tylenol With Codeine No.3 300mg/30mg) 2 tab PO Q4H PRN PRN Reason: Pain Last Admin: 08/27/17 09:50 Dose: 2 tab Albuterol (Proventil Hfa) 0 gm INH Q4H PRN PRN Reason: Shortness of Breath Ampicillin Sodium/Sulbactam (Sodium 3 gm/ Sodium Chloride) 100 mls @ 200 mls/ hr IV Q6H ELSY Last Admin: 08/27/17 12:35 Dose: 200 mls/hr Ibuprofen (Motrin) 800 mg PO Q8H PRN PRN Reason: Pain Last Admin: 08/26/17 14:49 Dose: 800 mg Ketorolac Tromethamine (Toradol) 30 mg IVPUSH Q6H PRN PRN Reason: Pain Last Admin: 08/26/17 20:18 Dose: 30 mg Lorazepam (Ativan) 0.5 mg IVPUSH Q4H PRN PRN Reason: Anxiety Last Admin: 08/27/17 12:30 Dose: 0.5 mg Miscellaneous Information (Remove Patch) 1 ea TRDERM DAILY [facility] Last Admin: 08/27/17 09:50 Dose: 1 ea Nicotine (Habitrol) 14 mg TRDERM DAILY [facility] Last Admin: 08/27/17 09:49 Dose: 14 mg Trazodone HCl (Trazodone) 50 mg PO ONETIME PRN PRN Reason: Insomnia Discontinued Medications Acetaminophen (Tylenol) 650 mg PO Q4H PRN PRN Reason: Pain Bupivacaine HCl (Marcaine 0.5%) Confirm Administered Dose 30 ml .ROUTE .STK-MED ONE Stop: 08/26/17 11:47 Last Admin: 08/26/17 12:05 Dose: 5 ml Fentanyl (Sublimaze) Confirm Administered Dose 100 mcg .ROUTE .STK-MED ONE Stop: 08/26/17 11:54 Fentanyl (Sublimaze) 50 mcg IVPUSH Q5M PRN PRN Reason: Pain Stop: 08/26/17 14:30 Hydromorphone HCl (Dilaudid) 0.5 mg IVPUSH ONETIME ONE Stop: 08/26/17 09:45 Last Admin: 08/26/17 09:50 Dose: 0.5 mg Ampicillin Sodium/Sulbactam (Sodium 3 gm/ Sodium Chloride) 100 mls @ 200 mls/ hr IV ONETIME ONE Stop: 08/26/17 02:28 Last Admin: 08/26/17 02:41 Dose: 200 mls/hr Vancomycin HCl 0.392480 gm/ (Sodium Chloride) 250 mls @ 250 mls/hr IV ONETIME ONE Stop: 08/26/17 05:29 Last Admin: 08/26/17 04:44 Dose: 250 mls/hr Ampicillin Sodium/Sulbactam (Sodium 3 gm/ Sodium Chloride) 100 mls @ 200 mls/ hr IV ONETIME ONE Stop: 08/26/17 11:59 Last Admin: 08/26/17 14:04 Dose: Not Given Lactated Ringer's (Ringers, Lactated) Confirm Administered Dose 1,000 mls @ as directed .ROUTE .STK-MED ONE Stop: 08/26/17 11:55 Ibuprofen (Motrin) 600 mg PO ONETIME ONE Stop: 08/26/17 02:34 Last Admin: 08/26/17 02:41 Dose: 600 mg Ibuprofen (Motrin) 600 mg PO Q8H PRN PRN Reason: Pain Lidocaine/Epinephrine (Xylocaine 1% With Epinephrine 1:100,000) Confirm Administered Dose 20 ml .ROUTE .STK-MED ONE Stop: 08/26/17 11:47 Last Admin: 08/26/17 12:05 Dose: 5 ml Lorazepam (Ativan) Confirm Administered Dose 2 mg .ROUTE .STK-MED ONE Stop: 08/26/17 16:55 Last Admin: 08/26/17 17:08 Dose: Not Given Midazolam HCl (Versed 1 Mg/Ml) Confirm Administered Dose 2 mg .ROUTE .STK-MED ONE Stop: 08/26/17 11:54 Ondansetron HCl (Zofran) 4 mg IVPUSH ONETIME PRN PRN Reason: Nausea/Vomiting Stop: 08/26/17 14:30 Propofol (Diprivan 20 Ml) Confirm Administered Dose 200 mg .ROUTE .STK-MED ONE Stop: 08/26/17 11:54 - Exam Extremities: Other (See progress note for details. Improvement in apperance of wound.) Discharge Operative/Procedures - Procedures Performed I&D Site: RIGHT upper extremity (26Aug2017)
== END 2017-08-27 14:20 | disposition home or self-care (01) | DRG 581 ==
LOC: JD.ED 00:34 → JD.MS 02:50
PROVIDERS: ADMIT Student in an Organized Health Care Education/Training Program; ATTEND Student in an Organized Health Care Education/Training Program
PROC: 0J9G0ZZ Drainage of Right Lower Arm Subcutaneous Tissue and Fascia, Open Approach (ICD-10-PCS; principal; 2017-08-26)
DX: L02.413 Cutaneous abscess of right upper limb (principal); L03.113 Cellulitis of right upper limb; B96.89 Other specified bacterial agents as the cause of diseases classified elsewhere; F15.10 Other stimulant abuse, uncomplicated; F11.10 Opioid abuse, uncomplicated; F17.210 Nicotine dependence, cigarettes, uncomplicated; H54.7 Unspecified visual loss; J45.909 Unspecified asthma, uncomplicated; M79.7 Fibromyalgia; F41.9 Anxiety disorder, unspecified; G47.00 Insomnia, unspecified; B19.20 Unspecified viral hepatitis C without hepatic coma; Z87.442 Personal history of urinary calculi
CPT/HCPCS: 00400; 36415; 76881-26-RT; 76881-RT; 80053; 81025; 85025; 87040; 87075; 87077; 87181; 87184; 87205; 87641; 96374; 99284; 99284-25; A9270-GY; J0295; J1170; J1885; J2060; J2250; J2704; J3010; J3370; J7030; J7050; J7120